=== PATIENT | male | born 1960 | race Caucasian/White ===

== ENCOUNTER 2016-10-19 10:58 | Emergency (ER) | payer SELFPAY ==
[~2016-10-19 10:58] MED LIST: ALTA1CAP2 PO; ASPI1TAB PO; BACL10TA2 PO; COAL TAR TOP; CYMB60CA3 PO; HYDR-3719 PO; OXYB10TA PO; PETROLATUM TOP; PLAV75TA38 PO; PRAV80TA2 PO; RANI1TAB6 PO; TIZA4CAP3 PO; TRAZ50TA4 PO
[2016-10-19] MEDS ORDERED: IPRATROPIUM 0.5MG/ALBUTEROL 2.5MG INH SOL UD 3ML (DUONEB)(J7620) As Ordered ONE (11:33)
[2016-10-19 11:34] LABS: BASO % 0.2 % (0.0-1.0); EOS % 0.6 % (0.0-3.0); LARGE UNSTAINED CELL # 0.1 K/mm3 (0.0-0.4); LARGE UNSTAINED CELL % 2.3 % (0.0-4.0); LYMPH # 0.8 K/mm3 (1.5-4.5); MEAN CORPUSCULAR HEMOGLOBIN 31.6 pg (27.0-33.0); MEAN CORPUSCULAR HGB CONC 35.5 g/dl (32.0-36.5); MEAN CORPUSCULAR VOLUME 89.1 fl (80.0-96.0); MONO # 0.4 K/mm3 (0.0-0.8); MONO % 7.1 % (0.0-5.0); NEUTROPHILS # 4.6 K/mm3 (1.8-7.7); NEUTROPHILS % 76.8 % (36.0-66.0); PLATELET COUNT, AUTOMATED 124 k/mm3 (150-450); RED CELL DISTRIBUTION WIDTH 12.9 % (11.5-14.5)
[2016-10-19 11:48] LABS: ANION GAP 13 MEQ/L (8-16); BLOOD UREA NITROGEN 13 MG/DL (7-18); CALCIUM LEVEL 8.3 MG/DL (8.5-10.1); CARBON DIOXIDE LEVEL 22 MEQ/L (21-32); CHLORIDE LEVEL 100 MEQ/L (98-107); CREATININE FOR GFR 0.95 MG/DL (0.70-1.30); GLOMERULAR FILTRATION RATE > 60.0 (>56); GLUCOSE, FASTING 148 MG/DL (70-105); POTASSIUM SERUM 3.6 MEQ/L (3.5-5.1); SODIUM LEVEL 135 MEQ/L (136-145)
[2016-10-19] MEDS ORDERED: ACETAMINOPHEN 325 MG TAB As Ordered ONE (12:14)
[2016-10-19] MEDS ORDERED: ONDANSETRON 4MG/2ML VIAL (J2405) As Ordered ONE (12:14)
--- NOTE | 2016-10-19 14:05 | EDDOCDS ---
Nurse's Notes [facility] Name: Qasim Babb Age: 56 yrs Sex: Male : 1960 Arrival Date: 10/19/2016 Time: 10:58 Bed 5 Private MD: Diagnosis: Acute bronchitis;Chronic obstructive pulmonary disease with (acute) exacerbation Presentation: 10/19 11:02 Presenting complaint: EMS states: sent from [facility] for general illness. Diff ttb breathing, n/v/d x5 days. Non-productive cough. SOB. Duoneb at . Albut in route. [id number]. 95% on 2L NC. Adult Sepsis Screening: The patient does not have new or worsening altered mentation. Patient has a respiratory rate of greater than or equal to 22 (1 point). Systolic blood pressure is greater than 100. Patient has a qSOFA score of 0- Negative Sepsis Screen. Suicide/Homicide risk assessment- the patient denies having any suicidal and/or homicidal ideations and does not present with any other emotional, behavioral or mental health complaints. Status: Patient is not a servicer coin machines or dependent. Transition of care: Patient was received from. 11:02 Acuity: MELY Level 3 ttb 11:02 Method Of Arrival: Walkin/Carried/Asstd ttb Triage Assessment: 11:10 General: Appears uncomfortable, well nourished, well groomed, Behavior is appropriate ttb for age, cooperative, pleasant. Pain: Denies pain. HIV screening NA for this visit Offered previously. Respiratory: Onset: The symptoms/episode began/occurred gradually, Airway is patent Respiratory effort is even, unlabored, shallow, Respiratory pattern is regular, symmetrical, Breath sounds are clear in left posterior upper lobe, right posterior upper lobe and left posterior lower lobe Breath sounds with rhonchi expiratory in right posterior middle lobe Reports shortness of breath at rest on exertion cough that is non-productive, pain with respiration the patient has moderate shortness of breath. GI: Bowel sounds present X 4 quads. Reports diarrhea, nausea, vomiting. Derm: Skin is normal. Historical: - Allergies: Chantix; - Home Meds: 1. pravastatin 80 mg oral tab 1 tab once daily (Last dose: 10/18/2016 21:00) 2. aspirin 81 mg Oral TbEC 1 tab once daily (Last dose: 10/18/2016 21:00) 3. Vicodin 5-500 mg Oral tab 1 tab every 4 hours (Last dose: 10/18/2016) 4. trazadone nightly (Last dose: 10/18/2016 21:00) 5. atenolol 100 mg Oral tab 1 tab once daily (Last dose: 10/18/2016 21:00) 6. ramipril 2.5 mg Oral cap 1 cap once daily (Last dose: 10/18/2016 21:00) 7. Plavix 75 mg Oral tab 1 tab once daily (Last dose: 10/18/2016 21:00) 8. Cymbalta 60 mg Oral cpDR 1 cap once daily (Last dose: 10/18/2016 21:00) - PMHx: lower abd aortic blockage w/ stent; COPD; Hypercholesterolemia; CAD; - PSHx: Coronary Stents; sinus surgery; aortic stent placement; - Social history: Smoking status: Patient uses tobacco products, current every day smoker. Patient/guardian denies using No barriers to communication noted, The patient speaks fluent Persian, Speaks appropriately for age. - Family history: Not pertinent. - : The pt / caregiver states he / she is on anticoagulants: Plavix. Home medication list is obtained from the patient. - Exposure Risk Screening:: None identified. Screenin:40 Screening information is obtained from the patient. Fall risk: No risks identified. ttb Assistance ADL's: requires no assistance with activities of daily living. Abuse/DV Screen: The patient / caregiver reports he/she is: not in a situation that causes fear, pain or injury. Nutritional screening: No deficits noted. Advance Directives: Currently, there is no health care proxy. home support is adequate. Assessment: 11:40 Adult Sepsis Screening: The patient does not have new or worsening altered mentation. ttb Patient has a respiratory rate of greater than or equal to 22 (1 point). Systolic blood pressure is greater than 100. Patient has a qSOFA score of 1- Negative Sepsis Screen. General: Appears in no apparent distress, Behavior is appropriate for age, cooperative, pleasant. Pain: Denies pain. Neurological: Level of Consciousness is awake, alert. Cardiovascular: Heart tones S1 S2 present Rhythm is sinus tachycardia No ectopy. Chest pain is denied. Derm: Skin is normal. 12:40 Reassessment: Patient appears in no apparent distress at this time. pt resting on ttb stretcher. NAD noted. Dry cough remains with deep inhalation. 12:40 Respiratory: Airway is patent Respiratory effort is even, unlabored, the patient has ttb mild shortness of breath. 13:15 Reassessment: Patient appears in no apparent distress at this time. Patient denies pain ttb at this time. Patient states feeling better. Patient states symptoms have improved. pt states he is ready to go home. 13:45 Reassessment: Patient appears in no apparent distress at this time. Patient denies pain ttb at this time. Patient states feeling better. Patient states symptoms have improved. pt states he is ready to go home at this time. . General: Appears in no apparent distress, comfortable, Behavior is appropriate for age, cooperative, pleasant. Pain: Denies pain. Neurological: Level of Consciousness is awake, alert. Cardiovascular: Chest pain is denied. Respiratory: No deficits noted. Airway is patent Respiratory effort is even, unlabored, Reports cough that is non-productive, the patient has mild shortness of breath Denies shortness of breath. GI: Denies nausea, vomiting, pain. Vital Signs: 11:05 BP 131 / 67; Pulse 104; Resp 22; Temp 101.5; Pulse Ox 95% on 2 lpm NC; Weight 122.47 rn1 kg; Height 5 ft. 8 in. (172.72 cm); Pain 7/10; 11:47 Pulse 102 MON; Pulse Ox 94% ; ttb 11:48 BP 149 / 64 (auto/); ttb 12:02 Pulse 108 MON; Pulse Ox 92% ; ttb 12:03 BP 137 / 68 (auto/); ttb 12:30 Pulse 96 MON; Pulse Ox 94% ; ttb 13:13 Pulse 92 MON; Resp 22 S; Pulse Ox 93% on 2 lpm NC; ttb 13:30 Temp 99.1; ttb 13:45 BP 130 / 80; Pulse 100; Resp 20; Temp 99.1; Pulse Ox 92% on R/A; Pain 0/10; ttb 11:05 Body Mass Index 41.05 (122.47 kg, 172.72 cm) rn1 Vitals: 11:10 Log In Time N/A - ambulance arrival. ttb ED Course: 10:59 Patient visited by Yuridia Ramsey Resolution Specialist. deg 10:59 Patient moved to Waiting deg 11:00 Joana Sandoval,MARIELENA is Primary Nurse. deg 11:00 Patient moved to 5 deg 11:04 Triage Initiated ttb 11:11 Patient visited by Stef Dowd. jml1 11:11 EKG done. (by ED staff). Reviewed by Shaila Holland MD. jml1 11:12 Patient visited by Christie Law RN. ttb 11:39 Maintain field IV. Dressing intact. Good blood return noted. Site clean & dry. Gauge & ttb site: 20GLH. Labs drawn. (by ED staff). Labs/Blood culture drawn. 11:40 The patient / caregiver is instructed regarding the plan of care and ED course. ttb Accompanied by Significant Other, Patient has correct armband on for positive identification. Placed in gown. Side rails up X 1. 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 Pulse ox on. NIBP on. 11:40 O2 via nasal cannula \T\ 2L/min. ttb 11:41 Patient visited by Christie Law RN. ttb 12:08 Avtar Tirado FNP is [facility]. ke 12:08 Patient visited by Avtar Tirado FNP. ke 12:08 Patient visited by Avtar Tirado FNP. ke 12:14 -Influenza A&B Rapid Antigen - Nose Sent. ttb 12:32 Patient visited by Avtar Tirado FNP. ke 12:40 Patient visited by Esther Heath PCA. bnb 12:40 Diet: Patient given juice. Tolerated well. bnb 13:11 Patient visited by Avtar Tirado FNP. ke 13:15 Patient visited by Christie Law RN. ttb 13:41 Patient visited by Christie Law RN. ttb 13:45 Discontinued IV lock intact, bleeding controlled, pressure dressing applied, No ttb redness/swelling at site. No procedures done that require assistance. Administered Medications: 11:39 Drug: Albuterol-Ipratropium 3 ml [ipratropium-albuterol 0.5 mg-3 mg(2.5 mg base)/3 mL [facility] nebulization soln (3 mL)] Route: Inhalation; 11:57 Follow up: Response: Nebulizer completed km6 12:19 Drug: Acetaminophen 975 mg [acetaminophen 325 mg tablet (3 tabs)] Route: PO; ttb 13:30 Follow up: Temp 99.1; Response: Temperature is decreased ttb 12:20 Drug: NS 0.9% 1000 ml [sodium chloride 0.9 % intravenous solution] Route: IV; Rate: ttb bolus; Site: left hand; 14:03 Follow up: Response: No Adverse Reaction; IV Status: Completed infusion ttb 12:21 Drug: Ondansetron 4 mg [ondansetron HCl 2 mg/mL intravenous solution (2 mL)] Route: ttb IVP; Site: left hand; 13:00 Follow up: Response: Nausea is resolved; No Adverse Reaction ttb RT: 11:57 Initial Med Neb Given as ordered Patient was instructed and evaluated on procedure km6 Patient tolerated procedure well without adverse effect. Respiratory: Breath sounds are clear bilaterally. 11:58 Respiratory: Breath sounds with rhonchi. km6 Order Results: Lab Order: B-Type Natiuretic Peptide; SPEC'M 10/19/16 11:19 Test: BRAIN NATRIURETIC PEPTIDE; Value: 5.7; Range: <100; Units: PG/ML; Status: F Lab Order: Basic Metabolic Profile; SPEC'M 10/19/16 11:19 Test: GLUCOSE, FASTING; Value: 148; Range: 70-105; Abnormal: Above high normal; Units: MG/DL; Status: F Test: BLOOD UREA NITROGEN; Value: 13; Range: 7-18; Units: MG/DL; Status: F Test: CREATININE FOR GFR; Value: 0.95; Range: 0.70-1.30; Units: MG/DL; Status: F Test: GLOMERULAR FILTRATION RATE; Value: > 60.0; Range: >56; Status: F Test: SODIUM LEVEL; Value: 135; Range: 136-145; Abnormal: Below low normal; Units: MEQ/L; Status: F Test: POTASSIUM SERUM; Value: 3.6; Range: 3.5-5.1; Units: MEQ/L; Status: F Test: CHLORIDE LEVEL; Value: 100; Range: 98-107; Units: MEQ/L; Status: F Test: CARBON DIOXIDE LEVEL; Value: 22; Range: 21-32; Units: MEQ/L; Status: F Test: ANION GAP; Value: 13; Range: 8-16; Units: MEQ/L; Status: F Test: CALCIUM LEVEL; Value: 8.3; Range: 8.5-10.1; Abnormal: Below low normal; Units: MG/DL; Status: F Test Note: ; Units are mL/min/1.73 m2 Chronic Kidney Disease Staging per NKF: Stage I & II GFR >=60 Normal to Mildly Decreased Stage III GFR 30-59 Moderately Decreased Stage IV GFR 15-29 Severely Decreased Stage V GFR <15 Very Little GFR Left ESRD GFR <15 on ZONING ASSISTANT Lab Order: CBC with Diff; SPEC'M 10/19/16 11:19 Test: WHITE BLOOD COUNT; Value: 6.0; Range: 4.0-10.0; Units: K/mm3; Status: F Test: RED BLOOD COUNT; Value: 5.43; Range: 4.30-6.10; Units: M/mm3; Status: F Test: HEMOGLOBIN; Value: 17.1; Range: 14.0-18.0; Units: g/dl; Status: F Test: HEMATOCRIT; Value: 48.3; Range: 42.0-52.0; Units: %; Status: F Test: MEAN CORPUSCULAR VOLUME; Value: 89.1; Range: 80.0-96.0; Units: fl; Status: F Test: MEAN CORPUSCULAR HEMOGLOBIN; Value: 31.6; Range: 27.0-33.0; Units: pg; Status: F Test: MEAN CORPUSCULAR HGB CONC; Value: 35.5; Range: 32.0-36.5; Units: g/dl; Status: F Test: RED CELL DISTRIBUTION WIDTH; Value: 12.9; Range: 11.5-14.5; Units: %; Status: F Test: PLATELET COUNT, AUTOMATED; Value: 124; Range: 150-450; Abnormal: Below low normal; Units: k/mm3; Status: F Test: NEUTROPHILS %; Value: 76.8; Range: 36.0-66.0; Abnormal: Above high normal; Units: %; Status: F Test: LYMPH %; Value: 13.0; Range: 24.0-44.0; Abnormal: Below low normal; Units: %; Status: F Test: MONO %; Value: 7.1; Range: 0.0-5.0; Abnormal: Above high normal; Units: %; Status: F Test: EOS %; Value: 0.6; Range: 0.0-3.0; Units: %; Status: F Test: BASO %; Value: 0.2; Range: 0.0-1.0; Units: %; Status: F Test: LARGE UNSTAINED CELL %; Value: 2.3; Range: 0.0-4.0; Units: %; Status: F Test: NEUTROPHILS #; Value: 4.6; Range: 1.8-7.7; Units: K/mm3; Status: F Test: LYMPH #; Value: 0.8; Range: 1.5-4.5; Abnormal: Below low normal; Units: K/mm3; Status: F Test: MONO #; Value: 0.4; Range: 0.0-0.8; Units: K/mm3; Status: F Test: EOS #; Value: 0.0; Range: 0.0-0.50; Units: K/mm3; Status: F Test: BASO #; Value: 0.0; Range: 0.0-0.2; Units: K/mm3; Status: F Test: LARGE UNSTAINED CELL #; Value: 0.1; Range: 0.0-0.4; Units: K/mm3; Status: F Lab Order: Troponin; SPEC'M 10/19/16 11:19 Test: TROPONIN I; Value: < 0.02; Range: < 0.10; Units: NG/ML; Status: F Test Note: ; Troponin I Reference Interval for Siemens Mattermark LOCI: 99th Percentile= 0.00-0.045 ng/ml Risk Stratification: <= 0.10 ng/ml Decreased Risk for Adverse Clinical Events. 0.10-1.50 ng/ml Increased Risk for Adverse Clinical Events. Evaluation of additional criterion and/or repeat testing in 2-6 hours is suggested to rule out myocardial damage. >= 1.50 ng/ml Indicative of Myocardial Injury. Lab Order: -Influenza A&B Rapid Antigen - Nose; SPEC'M 10/19/16 11:23 Test: INFLUENZA A RAPID SCR by ICA; Value: INFLUENZA A RESULTS NEGATIVE; Status: F Test: INFLUENZA A RAPID SCR by ICA; Value: Comments:; Status: F Test: INFLUENZA B RAPID SCR by ICA; Value: INFLUENZA B RESULTS NEGATIVE; Status: F Test Note: ; The Influenza test is a direct rapid immunoassay for the qualitative detection of Influenza viral antigen. Cell culture (Viral Culture) testing should be considered to confirm NEGATIVE results and to assist in detecting other viruses that can provide similar clinical symptoms. Please contact the lab within 24 hours ([phone]) if confirmatory testing is desired. Outcome: 13:35 Discharge ordered by Provider. 13:45 Discharge Assessment: Patient awake, alert and oriented x 3. No cognitive and/or ttb functional deficits noted. Patient verbalized understanding of disposition instructions. Patient awake and alert. patient administered narcotics - no. The following High Risk Discharge criteria are identified: None. Discharged to home ambulatory, with significant other. Condition: good Condition: stable Condition: improved. Discharge instructions given to patient, significant other, Instructed on discharge instructions, follow up and referral plans. medication usage, Demonstrated understanding of instructions, medications, Pt was receptive of discharge instructions/ teaching. Prescriptions given X 2. No special radiology studies were completed. Property :Personal belongings accompany Pt. 14:04 Patient left the ED. ttb Signatures: Yuridia Ramsey, Resolution Specialist Unit deg Avtar Tirado, C++ PROFESSOR C++ PROFESSOR Yeni Cantu km6 Stef Dowd Teresa, RN RN ttb Qasim Laird rn1 Esther Heath, OVIDIO ELECTROMECHANICAL TECHNICIAN bnb MTDD
--- NOTE | 2016-10-19 14:05 | EDDOCDS ---
Physician Documentation [facility] Name: Qasim Babb Age: 56 yrs Sex: Male : 1960 Arrival Date: 10/19/2016 Time: 10:58 Bed 5 Private MD: Disposition: 10/19/16 13:35 Discharged to Home/Self Care. Impression: Acute bronchitis, Chronic obstructive pulmonary disease with (acute) exacerbation. - Condition is Stable. - Discharge Instructions: Acute Bronchitis, Chronic Obstructive Pulmonary Disease. - Prescriptions for Tussionex Pennkinetic ER 8- 10 mg/5 mL Oral Suspension, Sust. Release 12 hr - take 5 milliliter by ORAL route every 12 hours As needed; 120 milliliter. Moxifloxacin 400 mg Oral Tablet - take 1 tablet by ORAL route once daily; 7 tablet. - Medication Reconciliation, Local Pharmacy Hours form. - Follow up: Private Physician; When: 4 - 5 days; Reason: Recheck today's complaints, Continuance of care. - Problem is an ongoing problem. - Symptoms are unchanged. Historical: - Allergies: Chantix; - Home Meds: 1. pravastatin 80 mg oral tab 1 tab once daily (Last dose: 10/18/2016 21:00) 2. aspirin 81 mg Oral TbEC 1 tab once daily (Last dose: 10/18/2016 21:00) 3. Vicodin 5-500 mg Oral tab 1 tab every 4 hours (Last dose: 10/18/2016) 4. trazadone nightly (Last dose: 10/18/2016 21:00) 5. atenolol 100 mg Oral tab 1 tab once daily (Last dose: 10/18/2016 21:00) 6. ramipril 2.5 mg Oral cap 1 cap once daily (Last dose: 10/18/2016 21:00) 7. Plavix 75 mg Oral tab 1 tab once daily (Last dose: 10/18/2016 21:00) 8. Cymbalta 60 mg Oral cpDR 1 cap once daily (Last dose: 10/18/2016 21:00) - PMHx: lower abd aortic blockage w/ stent; COPD; Hypercholesterolemia; CAD; - PSHx: Coronary Stents; sinus surgery; aortic stent placement; - Social history: Smoking status: Patient uses tobacco products, current every day smoker. Patient/guardian denies using No barriers to communication noted, The patient speaks fluent Latvian, Speaks appropriately for age. - Family history: Not pertinent. - : The pt / caregiver states he / she is on anticoagulants: Plavix. Home medication list is obtained from the patient. - Exposure Risk Screening:: None identified. Vital Signs: 10/19 11:05 BP 131 / 67; Pulse 104; Resp 22; Temp 101.5; Pulse Ox 95% on 2 lpm NC; Weight 122.47 kg rn1 / 270 lbs; Height 5 ft. 8 in. (172.72 cm); Pain 7/10; 11:47 Pulse 102 MON; Pulse Ox 94% ; ttb 11:48 BP 149 / 64 (auto/); ttb 12:02 Pulse 108 MON; Pulse Ox 92% ; ttb 12:03 BP 137 / 68 (auto/); ttb 12:30 Pulse 96 MON; Pulse Ox 94% ; ttb 13:13 Pulse 92 MON; Resp 22 S; Pulse Ox 93% on 2 lpm NC; ttb 13:30 Temp 99.1; ttb 13:45 BP 130 / 80; Pulse 100; Resp 20; Temp 99.1; Pulse Ox 92% on R/A; Pain 0/10; ttb 11:05 Body Mass Index 41.05 (122.47 kg, 172.72 cm) rn1 MDM: 11:01 -Blood Culture (Adults Only), peripheral from different site, or from device/port/PICC fg etc. if present ordered. 11:01 Electric Meter Installer Helper/Pulse Ox/q 15 min VS ordered. fg 11:01 IV Saline Lock ordered. fg 11:01 Oxygen at 4L/Min NC or Home dosage ordered. fg 11:01 Rhythm Strip to chart ordered. fg 11:02 -Blood Culture Ordered. EDMS 11:02 B-Type Natiuretic Peptide Ordered. EDMS 11:02 Basic Metabolic Profile Ordered. EDMS 11:02 CBC with Diff Ordered. EDMS 11:02 Troponin Ordered. EDMS 11:02 -Blood Culture (Adults Only), peripheral from different site, or from device/port/PICC deg etc. if present complete. 11:03 Chest, 1 View Ordered. EDMS 11:03 ECG WITH READING ER PHYS+CARDIAG ordered. EDMS 11:25 Albuterol-Ipratropium 3 ml Inhalation once ordered. fg 12:12 Obtain sample by nasal aspiration ordered. ke 12:12 Acetaminophen Tablet 975 mg PO once ordered. ke 12:13 -Influenza A&B Rapid Antigen - Nose Ordered. EDMS 12:13 NS 0.9% 1000 ml IV at bolus once ordered. ke 12:13 Ondansetron 4 mg IVP once ordered. ke 13:58 Financial registration complete. jp5 Administered Medications: 11:39 Drug: Albuterol-Ipratropium 3 ml [ipratropium-albuterol 0.5 mg-3 mg(2.5 mg base)/3 mL km6 nebulization soln (3 mL)] Route: Inhalation; 11:57 Follow up: Response: Nebulizer completed km6 12:19 Drug: Acetaminophen 975 mg [acetaminophen 325 mg tablet (3 tabs)] Route: PO; ttb 13:30 Follow up: Temp 99.1; Response: Temperature is decreased ttb 12:20 Drug: NS 0.9% 1000 ml [sodium chloride 0.9 % intravenous solution] Route: IV; Rate: ttb bolus; Site: left hand; 14:03 Follow up: Response: No Adverse Reaction; IV Status: Completed infusion ttb 12:21 Drug: Ondansetron 4 mg [ondansetron HCl 2 mg/mL intravenous solution (2 mL)] Route: ttb IVP; Site: left hand; 13:00 Follow up: Response: Nausea is resolved; No Adverse Reaction ttb Signatures: Dispatcher [employer] EDYuridia Vu, Detonator Assembler Unit deg Avtar Tirado, DIRT SHOVELER Christie Ha RN RN ttb Gilmer Schneider jp5 Shaila Holland MD MD fg Merriman, Kimberly 6 The chart was reviewed and I authenticate all verbal orders and agree with the evaluation and treatment provided.Corrections: (The following items were deleted from the chart) 13:41 11:03 BLOOD CULTURES ordered. EDPR EDMS MTDD
--- NOTE | 2016-10-19 15:51 | ECGEPIP ---
Stationary ECG Study [facility] - ED Test Date: 2016-10-19 Pat Name: AIYANA SHAFER Department: Room: - Gender: M Voice Studies Director: JJavy : 1960 Requested By: ANGELA Moreira Order Number: [id number] Reading MD: Ching Guillermo Measurements Intervals [place] Rate: 102 P: 69 ME: 128 QRS: 81 QRSD: 102 T: 18 QT: 348 QTc: 453 Interpretive Statements SINUS TACHYCARDIA WITH OCCASIONAL VENTRICULAR PREMATURE COMPLEXES ABNORMAL RHYTHM ECG DELAYED R PROGRESSION NSTTW ABNORMALITY INCREASED RATE 05/31/12 Electronically Signed On 10-19-2016 15:51:02 EST by Ching Guillermo
--- NOTE | 2016-10-20 11:14 | REP ---
Portable chest, single AP view, patient sitting: Comparisons are 09/19/2016 and 05/31/2012. The lung zhong are clear. The cardiac size is normal The rose, mediastinum, and bony thorax are unremarkable. Impression: Negative portable chest. Signed by Lavelle Cabrera MD 10/19/2016 11:54 A
--- NOTE | 2016-10-21 15:05 | EDDOCDS ---
Physician Documentation [facility] Name: Qasim Babb Age: 56 yrs Sex: Male : 1960 Arrival Date: 10/19/2016 Time: 10:58 Bed 5 Private MD: Disposition: 10/19/16 13:35 Discharged to Home/Self Care. Impression: Acute bronchitis, Chronic obstructive pulmonary disease with (acute) exacerbation. - Condition is Stable. - Discharge Instructions: Acute Bronchitis, Chronic Obstructive Pulmonary Disease. - Prescriptions for Tussionex Pennkinetic ER 8- 10 mg/5 mL Oral Suspension, Sust. Release 12 hr - take 5 milliliter by ORAL route every 12 hours As needed; 120 milliliter. Moxifloxacin 400 mg Oral Tablet - take 1 tablet by ORAL route once daily; 7 tablet. - Medication Reconciliation, Local Pharmacy Hours form. - Follow up: Private Physician; When: 4 - 5 days; Reason: Recheck today's complaints, Continuance of care. - Problem is an ongoing problem. - Symptoms are unchanged. Historical: - Allergies: Chantix; - Home Meds: 1. pravastatin 80 mg oral tab 1 tab once daily (Last dose: 10/18/2016 21:00) 2. aspirin 81 mg Oral TbEC 1 tab once daily (Last dose: 10/18/2016 21:00) 3. Vicodin 5-500 mg Oral tab 1 tab every 4 hours (Last dose: 10/18/2016) 4. trazadone nightly (Last dose: 10/18/2016 21:00) 5. atenolol 100 mg Oral tab 1 tab once daily (Last dose: 10/18/2016 21:00) 6. ramipril 2.5 mg Oral cap 1 cap once daily (Last dose: 10/18/2016 21:00) 7. Plavix 75 mg Oral tab 1 tab once daily (Last dose: 10/18/2016 21:00) 8. Cymbalta 60 mg Oral cpDR 1 cap once daily (Last dose: 10/18/2016 21:00) - PMHx: lower abd aortic blockage w/ stent; COPD; Hypercholesterolemia; CAD; - PSHx: Coronary Stents; sinus surgery; aortic stent placement; - Social history: Smoking status: Patient uses tobacco products, current every day smoker. Patient/guardian denies using No barriers to communication noted, The patient speaks fluent Zimbabwean, Speaks appropriately for age. - Family history: Not pertinent. - : The pt / caregiver states he / she is on anticoagulants: Plavix. Home medication list is obtained from the patient. - Exposure Risk Screening:: None identified. Vital Signs: 10/19 11:05 BP 131 / 67; Pulse 104; Resp 22; Temp 101.5; Pulse Ox 95% on 2 lpm NC; Weight 122.47 kg rn1 / 270 lbs; Height 5 ft. 8 in. (172.72 cm); Pain 7/10; 11:47 Pulse 102 MON; Pulse Ox 94% ; ttb 11:48 BP 149 / 64 (auto/); ttb 12:02 Pulse 108 MON; Pulse Ox 92% ; ttb 12:03 BP 137 / 68 (auto/); ttb 12:30 Pulse 96 MON; Pulse Ox 94% ; ttb 13:13 Pulse 92 MON; Resp 22 S; Pulse Ox 93% on 2 lpm NC; ttb 13:30 Temp 99.1; ttb 13:45 BP 130 / 80; Pulse 100; Resp 20; Temp 99.1; Pulse Ox 92% on R/A; Pain 0/10; ttb 11:05 Body Mass Index 41.05 (122.47 kg, 172.72 cm) rn1 MDM: 11:01 -Blood Culture (Adults Only), peripheral from different site, or from device/port/PICC fg etc. if present ordered. 11:01 Cooker Pie Filling/Pulse Ox/q 15 min VS ordered. fg 11:01 IV Saline Lock ordered. fg 11:01 Oxygen at 4L/Min NC or Home dosage ordered. fg 11:01 Rhythm Strip to chart ordered. fg 11:02 -Blood Culture Ordered. EDMS 11:02 B-Type Natiuretic Peptide Ordered. EDMS 11:02 Basic Metabolic Profile Ordered. EDMS 11:02 CBC with Diff Ordered. EDMS 11:02 Troponin Ordered. EDMS 11:02 -Blood Culture (Adults Only), peripheral from different site, or from device/port/PICC deg etc. if present complete. 11:03 Chest, 1 View Ordered. EDMS 11:03 ECG WITH READING ER PHYS+CARDIAG ordered. EDMS 11:25 Albuterol-Ipratropium 3 ml Inhalation once ordered. fg 12:12 Obtain sample by nasal aspiration ordered. ke 12:12 Acetaminophen Tablet 975 mg PO once ordered. ke 12:13 -Influenza A&B Rapid Antigen - Nose Ordered. EDMS 12:13 NS 0.9% 1000 ml IV at bolus once ordered. ke 12:13 Ondansetron 4 mg IVP once ordered. ke 13:58 Financial registration complete. jp5 15:49 [facility] Payment Agreement was scanned into [employer] and attached to record. jp5 15:49 Undo -Financial registration. jp5 15:49 Financial registration complete. jp5 19:17 T-Sheet-- Draft Copy was scanned into [employer] and attached to record. klr 10/20 10:46 ECG/EKG was scanned into [employer] and attached to record. gb 10:46 Trend VS was scanned into [employer] and attached to record. gb Administered Medications: 10/19 11:39 Drug: Albuterol-Ipratropium 3 ml [ipratropium-albuterol 0.5 mg-3 mg(2.5 mg base)/3 mL 6 nebulization soln (3 mL)] Route: Inhalation; 11:57 Follow up: Response: Nebulizer completed km6 12:19 Drug: Acetaminophen 975 mg [acetaminophen 325 mg tablet (3 tabs)] Route: PO; ttb 13:30 Follow up: Temp 99.1; Response: Temperature is decreased ttb 12:20 Drug: NS 0.9% 1000 ml [sodium chloride 0.9 % intravenous solution] Route: IV; Rate: ttb bolus; Site: left hand; 14:03 Follow up: Response: No Adverse Reaction; IV Status: Completed infusion ttb 12:21 Drug: Ondansetron 4 mg [ondansetron HCl 2 mg/mL intravenous solution (2 mL)] Route: ttb IVP; Site: left hand; 13:00 Follow up: Response: Nausea is resolved; No Adverse Reaction ttb Signatures: Dispatcher [employer] EDMS Yuridia Ramsey, Engineering Technology Instructor Unit deg Taylor Peters, Reg Reg gb Avtar Tirado, PIPE FITTER SOFT COPPER PIPE FITTER SOFT COPPER Christie Ramsay, RN RN ttb Gilmer Schneider 5 Shaila Holland MD MD fg Redder, Kathie klr Merriman, Kimberly 6 The chart was reviewed and I authenticate all verbal orders and agree with the evaluation and treatment provided.Corrections: (The following items were deleted from the chart) 13:41 11:03 BLOOD CULTURES ordered. EDMS EDMS Attachments: 15:49 [facility] Payment Agreement jp5 19:17 T-Sheet-- Draft Copy r 10/20 10:46 ECG/EKG gb Chart Complete MTDD
--- NOTE | 2016-10-21 15:05 | EDDOCDS ---
Nurse's Notes [facility] Name: Aiyana Shafer Age: 56 yrs Sex: Male : 1960 Arrival Date: 10/19/2016 Time: 10:58 Bed 5 Private MD: Diagnosis: Acute bronchitis;Chronic obstructive pulmonary disease with (acute) exacerbation Presentation: 10/19 11:02 Presenting complaint: EMS states: sent from [facility] for general illness. Diff ttb breathing, n/v/d x5 days. Non-productive cough. SOB. Duoneb at . Albut in route. [id number]. 95% on 2L NC. Adult Sepsis Screening: The patient does not have new or worsening altered mentation. Patient has a respiratory rate of greater than or equal to 22 (1 point). Systolic blood pressure is greater than 100. Patient has a qSOFA score of 0- Negative Sepsis Screen. Suicide/Homicide risk assessment- the patient denies having any suicidal and/or homicidal ideations and does not present with any other emotional, behavioral or mental health complaints. Status: Patient is not a ancillary services manager or dependent. Transition of care: Patient was received from. 11:02 Acuity: MELY Level 3 ttb 11:02 Method Of Arrival: Walkin/Carried/Asstd ttb Triage Assessment: 11:10 General: Appears uncomfortable, well nourished, well groomed, Behavior is appropriate ttb for age, cooperative, pleasant. Pain: Denies pain. HIV screening NA for this visit Offered previously. Respiratory: Onset: The symptoms/episode began/occurred gradually, Airway is patent Respiratory effort is even, unlabored, shallow, Respiratory pattern is regular, symmetrical, Breath sounds are clear in left posterior upper lobe, right posterior upper lobe and left posterior lower lobe Breath sounds with rhonchi expiratory in right posterior middle lobe Reports shortness of breath at rest on exertion cough that is non-productive, pain with respiration the patient has moderate shortness of breath. GI: Bowel sounds present X 4 quads. Reports diarrhea, nausea, vomiting. Derm: Skin is normal. Historical: - Allergies: Chantix; - Home Meds: 1. pravastatin 80 mg oral tab 1 tab once daily (Last dose: 10/18/2016 21:00) 2. aspirin 81 mg Oral TbEC 1 tab once daily (Last dose: 10/18/2016 21:00) 3. Vicodin 5-500 mg Oral tab 1 tab every 4 hours (Last dose: 10/18/2016) 4. trazadone nightly (Last dose: 10/18/2016 21:00) 5. atenolol 100 mg Oral tab 1 tab once daily (Last dose: 10/18/2016 21:00) 6. ramipril 2.5 mg Oral cap 1 cap once daily (Last dose: 10/18/2016 21:00) 7. Plavix 75 mg Oral tab 1 tab once daily (Last dose: 10/18/2016 21:00) 8. Cymbalta 60 mg Oral cpDR 1 cap once daily (Last dose: 10/18/2016 21:00) - PMHx: lower abd aortic blockage w/ stent; COPD; Hypercholesterolemia; CAD; - PSHx: Coronary Stents; sinus surgery; aortic stent placement; - Social history: Smoking status: Patient uses tobacco products, current every day smoker. Patient/guardian denies using No barriers to communication noted, The patient speaks fluent Korean, Speaks appropriately for age. - Family history: Not pertinent. - : The pt / caregiver states he / she is on anticoagulants: Plavix. Home medication list is obtained from the patient. - Exposure Risk Screening:: None identified. Screenin:40 Screening information is obtained from the patient. Fall risk: No risks identified. ttb Assistance ADL's: requires no assistance with activities of daily living. Abuse/DV Screen: The patient / caregiver reports he/she is: not in a situation that causes fear, pain or injury. Nutritional screening: No deficits noted. Advance Directives: Currently, there is no health care proxy. home support is adequate. Assessment: 11:40 Adult Sepsis Screening: The patient does not have new or worsening altered mentation. ttb Patient has a respiratory rate of greater than or equal to 22 (1 point). Systolic blood pressure is greater than 100. Patient has a qSOFA score of 1- Negative Sepsis Screen. General: Appears in no apparent distress, Behavior is appropriate for age, cooperative, pleasant. Pain: Denies pain. Neurological: Level of Consciousness is awake, alert. Cardiovascular: Heart tones S1 S2 present Rhythm is sinus tachycardia No ectopy. Chest pain is denied. Derm: Skin is normal. 12:40 Reassessment: Patient appears in no apparent distress at this time. pt resting on ttb stretcher. NAD noted. Dry cough remains with deep inhalation. 12:40 Respiratory: Airway is patent Respiratory effort is even, unlabored, the patient has ttb mild shortness of breath. 13:15 Reassessment: Patient appears in no apparent distress at this time. Patient denies pain ttb at this time. Patient states feeling better. Patient states symptoms have improved. pt states he is ready to go home. 13:45 Reassessment: Patient appears in no apparent distress at this time. Patient denies pain ttb at this time. Patient states feeling better. Patient states symptoms have improved. pt states he is ready to go home at this time. . General: Appears in no apparent distress, comfortable, Behavior is appropriate for age, cooperative, pleasant. Pain: Denies pain. Neurological: Level of Consciousness is awake, alert. Cardiovascular: Chest pain is denied. Respiratory: No deficits noted. Airway is patent Respiratory effort is even, unlabored, Reports cough that is non-productive, the patient has mild shortness of breath Denies shortness of breath. GI: Denies nausea, vomiting, pain. Vital Signs: 11:05 BP 131 / 67; Pulse 104; Resp 22; Temp 101.5; Pulse Ox 95% on 2 lpm NC; Weight 122.47 rn1 kg; Height 5 ft. 8 in. (172.72 cm); Pain 7/10; 11:47 Pulse 102 MON; Pulse Ox 94% ; ttb 11:48 BP 149 / 64 (auto/); ttb 12:02 Pulse 108 MON; Pulse Ox 92% ; ttb 12:03 BP 137 / 68 (auto/); ttb 12:30 Pulse 96 MON; Pulse Ox 94% ; ttb 13:13 Pulse 92 MON; Resp 22 S; Pulse Ox 93% on 2 lpm NC; ttb 13:30 Temp 99.1; ttb 13:45 BP 130 / 80; Pulse 100; Resp 20; Temp 99.1; Pulse Ox 92% on R/A; Pain 0/10; ttb 11:05 Body Mass Index 41.05 (122.47 kg, 172.72 cm) rn1 Vitals: 11:10 Log In Time N/A - ambulance arrival. ttb ED Course: 10:59 Patient visited by Yuridia Ramsey Research Group Director. deg 10:59 Patient moved to Waiting deg 11:00 Joana Sandoval,MARIELENA is Primary Nurse. deg 11:00 Patient moved to 5 deg 11:04 Triage Initiated ttb 11:11 Patient visited by Stef Dowd. jml1 11:11 EKG done. (by ED staff). Reviewed by Shaila Holland MD. jml1 11:12 Patient visited by Christie Law, MARIELENA. ttb 11:39 Maintain field IV. Dressing intact. Good blood return noted. Site clean & dry. Gauge & ttb site: 20GLH. Labs drawn. (by ED staff). Labs/Blood culture drawn. 11:40 The patient / caregiver is instructed regarding the plan of care and ED course. ttb Accompanied by Significant Other, Patient has correct armband on for positive identification. Placed in gown. Side rails up X 1. break off worker on. Pulse ox on. NIBP on. 11:40 O2 via nasal cannula \T\ 2L/min. ttb 11:41 Patient visited by Christie Law RN. ttb 12:08 Avtar Tirado [facility]. ke 12:08 Patient visited by Avtar Tirado FNP. ke 12:08 Patient visited by Avtar Tirado FNP. ke 12:14 -Influenza A&B Rapid Antigen - Nose Sent. ttb 12:32 Patient visited by Avtar Tirado FNP. ke 12:40 Patient visited by Esther Heath, OVIDIO. bnb 12:40 Diet: Patient given juice. Tolerated well. bnb 13:11 Patient visited by Avtar Tirado FNP. ke 13:15 Patient visited by Christie Law RN. ttb 13:41 Patient visited by Christie Law RN. ttb 13:45 Discontinued IV lock intact, bleeding controlled, pressure dressing applied, No ttb redness/swelling at site. No procedures done that require assistance. 15:49 [facility] Payment Agreement was scanned into [employer] and attached to record. jp5 16:04 EKG-ADULT Returned. EDMS 19:17 T-Sheet-- Draft Copy was scanned into [employer] and attached to record. klr 10/20 10:46 ECG/EKG was scanned into [employer] and attached to record. gb 10:46 Trend VS was scanned into [employer] and attached to record. gb 11:20 Chest, 1 View Returned. EDMS Administered Medications: 10/19 11:39 Drug: Albuterol-Ipratropium 3 ml [ipratropium-albuterol 0.5 mg-3 mg(2.5 mg base)/3 mL km6 nebulization soln (3 mL)] Route: Inhalation; 11:57 Follow up: Response: Nebulizer completed km6 12:19 Drug: Acetaminophen 975 mg [acetaminophen 325 mg tablet (3 tabs)] Route: PO; ttb 13:30 Follow up: Temp 99.1; Response: Temperature is decreased ttb 12:20 Drug: NS 0.9% 1000 ml [sodium chloride 0.9 % intravenous solution] Route: IV; Rate: ttb bolus; Site: left hand; 14:03 Follow up: Response: No Adverse Reaction; IV Status: Completed infusion ttb 12:21 Drug: Ondansetron 4 mg [ondansetron HCl 2 mg/mL intravenous solution (2 mL)] Route: ttb IVP; Site: left hand; 13:00 Follow up: Response: Nausea is resolved; No Adverse Reaction ttb Attachments: 10:46 Trend VS gb RT: 10/19 11:57 Initial Med Neb Given as ordered Patient was instructed and evaluated on procedure km6 Patient tolerated procedure well without adverse effect. Respiratory: Breath sounds are clear bilaterally. 11:58 Respiratory: Breath sounds with rhonchi. km6 Order Results: Lab Order: -Blood Culture; SPEC'M 10/19/16 11:19 Test: BLOOD CULTURE; Value: No growth after 24 hours . All specimens observed; Status: F Test: BLOOD CULTURE; Value: for 5 days. Results final at that time.; Status: F Test: BLOOD CULTURE; Value: No Growth after 48 hours. All Specimens observed; Status: F Test: BLOOD CULTURE; Value: for 7 days. Results final at that time.; Status: F Lab Order: B-Type Natiuretic Peptide; SPEC'M 10/19/16 11:19 Test: BRAIN NATRIURETIC PEPTIDE; Value: 5.7; Range: <100; Units: PG/ML; Status: F Lab Order: Basic Metabolic Profile; SPEC'M 10/19/16 11:19 Test: GLUCOSE, FASTING; Value: 148; Range: 70-105; Abnormal: Above high normal; Units: MG/DL; Status: F Test: BLOOD UREA NITROGEN; Value: 13; Range: 7-18; Units: MG/DL; Status: F Test: CREATININE FOR GFR; Value: 0.95; Range: 0.70-1.30; Units: MG/DL; Status: F Test: GLOMERULAR FILTRATION RATE; Value: > 60.0; Range: >56; Status: F Test: SODIUM LEVEL; Value: 135; Range: 136-145; Abnormal: Below low normal; Units: MEQ/L; Status: F Test: POTASSIUM SERUM; Value: 3.6; Range: 3.5-5.1; Units: MEQ/L; Status: F Test: CHLORIDE LEVEL; Value: 100; Range: 98-107; Units: MEQ/L; Status: F Test: CARBON DIOXIDE LEVEL; Value: 22; Range: 21-32; Units: MEQ/L; Status: F Test: ANION GAP; Value: 13; Range: 8-16; Units: MEQ/L; Status: F Test: CALCIUM LEVEL; Value: 8.3; Range: 8.5-10.1; Abnormal: Below low normal; Units: MG/DL; Status: F Test Note: ; Units are mL/min/1.73 m2 Chronic Kidney Disease Staging per NKF: Stage I & II GFR >=60 Normal to Mildly Decreased Stage III GFR 30-59 Moderately Decreased Stage IV GFR 15-29 Severely Decreased Stage V GFR <15 Very Little GFR Left ESRD GFR <15 on POULTRY PROCESS WORKER Lab Order: CBC with Diff; SPEC'M 10/19/16 11:19 Test: WHITE BLOOD COUNT; Value: 6.0; Range: 4.0-10.0; Units: K/mm3; Status: F Test: RED BLOOD COUNT; Value: 5.43; Range: 4.30-6.10; Units: M/mm3; Status: F Test: HEMOGLOBIN; Value: 17.1; Range: 14.0-18.0; Units: g/dl; Status: F Test: HEMATOCRIT; Value: 48.3; Range: 42.0-52.0; Units: %; Status: F Test: MEAN CORPUSCULAR VOLUME; Value: 89.1; Range: 80.0-96.0; Units: fl; Status: F Test: MEAN CORPUSCULAR HEMOGLOBIN; Value: 31.6; Range: 27.0-33.0; Units: pg; Status: F Test: MEAN CORPUSCULAR HGB CONC; Value: 35.5; Range: 32.0-36.5; Units: g/dl; Status: F Test: RED CELL DISTRIBUTION WIDTH; Value: 12.9; Range: 11.5-14.5; Units: %; Status: F Test: PLATELET COUNT, AUTOMATED; Value: 124; Range: 150-450; Abnormal: Below low normal; Units: k/mm3; Status: F Test: NEUTROPHILS %; Value: 76.8; Range: 36.0-66.0; Abnormal: Above high normal; Units: %; Status: F Test: LYMPH %; Value: 13.0; Range: 24.0-44.0; Abnormal: Below low normal; Units: %; Status: F Test: MONO %; Value: 7.1; Range: 0.0-5.0; Abnormal: Above high normal; Units: %; Status: F Test: EOS %; Value: 0.6; Range: 0.0-3.0; Units: %; Status: F Test: BASO %; Value: 0.2; Range: 0.0-1.0; Units: %; Status: F Test: LARGE UNSTAINED CELL %; Value: 2.3; Range: 0.0-4.0; Units: %; Status: F Test: NEUTROPHILS #; Value: 4.6; Range: 1.8-7.7; Units: K/mm3; Status: F Test: LYMPH #; Value: 0.8; Range: 1.5-4.5; Abnormal: Below low normal; Units: K/mm3; Status: F Test: MONO #; Value: 0.4; Range: 0.0-0.8; Units: K/mm3; Status: F Test: EOS #; Value: 0.0; Range: 0.0-0.50; Units: K/mm3; Status: F Test: BASO #; Value: 0.0; Range: 0.0-0.2; Units: K/mm3; Status: F Test: LARGE UNSTAINED CELL #; Value: 0.1; Range: 0.0-0.4; Units: K/mm3; Status: F Lab Order: Troponin; SPEC'M 10/19/16 11:19 Test: TROPONIN I; Value: < 0.02; Range: < 0.10; Units: NG/ML; Status: F Test Note: ; Troponin I Reference Interval for Siemens Thornton LOCI: 99th Percentile= 0.00-0.045 ng/ml Risk Stratification: <= 0.10 ng/ml Decreased Risk for Adverse Clinical Events. 0.10-1.50 ng/ml Increased Risk for Adverse Clinical Events. Evaluation of additional criterion and/or repeat testing in 2-6 hours is suggested to rule out myocardial damage. >= 1.50 ng/ml Indicative of Myocardial Injury. Lab Order: -Influenza A&B Rapid Antigen - Nose; SPEC'M 10/19/16 11:23 Test: INFLUENZA A RAPID SCR by ICA; Value: INFLUENZA A RESULTS NEGATIVE; Status: F Test: INFLUENZA A RAPID SCR by ICA; Value: Comments:; Status: F Test: INFLUENZA B RAPID SCR by ICA; Value: INFLUENZA B RESULTS NEGATIVE; Status: F Test Note: ; The Influenza test is a direct rapid immunoassay for the qualitative detection of Influenza viral antigen. Cell culture (Viral Culture) testing should be considered to confirm NEGATIVE results and to assist in detecting other viruses that can provide similar clinical symptoms. Please contact the lab within 24 hours ([phone]) if confirmatory testing is desired. Radiology Order: Chest, 1 View Test: Chest, 1 View REASON FOR EXAMINATION: Cough; Portable chest, single AP view, patient sitting:; ; Comparisons are 09/19/2016 and 05/31/2012.; ; The lung zhong are clear. The cardiac size is normal; ; The rose, mediastinum, and bony thorax are unremarkable.; ; Impression:; ; Negative portable chest.; ; ; Signed by; Lavelle Cabrera MD 10/19/2016 11:54 A; Radiology Order: EKG-ADULT Test: EKG-ADULT REASON FOR EXAMINATION: Cough; Stationary ECG Study; 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 ke 13:45 Discharge Assessment: Patient awake, alert and oriented x 3. No cognitive and/or ttb functional deficits noted. Patient verbalized understanding of disposition instructions. Patient awake and alert. patient administered narcotics - no. The following High Risk Discharge criteria are identified: None. Discharged to home ambulatory, with significant other. Condition: good Condition: stable Condition: improved. Discharge instructions given to patient, significant other, Instructed on discharge instructions, follow up and referral plans. medication usage, Demonstrated understanding of instructions, medications, Pt was receptive of discharge instructions/ teaching. Prescriptions given X 2. No special radiology studies were completed. Property :Personal belongings accompany Pt. 14:04 Patient left the ED. ttb Signatures: Dispatcher [employer] EDMS Yuridia Ramsey, Research Group Director Unit deg Taylor Peters, Reg Reg gb Avtar Tirado, TEACHER ELEMENTARY SCHOOL TEACHER ELEMENTARY SCHOOL Yeni Cantu6 Stef Dowd Teresa, RN RN ttb Aiyana Laird rn1 Gilmer Schneider Kathie klr Becker, Brittney, OVIDIO ENERGY SYSTEMS ENGINEER bnb Chart Complete MANUELITO
--- NOTE | 2016-10-21 15:05 | EDDOCDS ---
Physician Documentation [facility] Name: Qasim Babb Age: 56 yrs Sex: Male : 1960 Arrival Date: 10/19/2016 Time: 10:58 Bed 5 Private MD: Disposition: 10/19/16 13:35 Discharged to Home/Self Care. Impression: Acute bronchitis, Chronic obstructive pulmonary disease with (acute) exacerbation. - Condition is Stable. - Discharge Instructions: Acute Bronchitis, Chronic Obstructive Pulmonary Disease. - Prescriptions for Tussionex Pennkinetic ER 8- 10 mg/5 mL Oral Suspension, Sust. Release 12 hr - take 5 milliliter by ORAL route every 12 hours As needed; 120 milliliter. Moxifloxacin 400 mg Oral Tablet - take 1 tablet by ORAL route once daily; 7 tablet. - Medication Reconciliation, Local Pharmacy Hours form. - Follow up: Private Physician; When: 4 - 5 days; Reason: Recheck today's complaints, Continuance of care. - Problem is an ongoing problem. - Symptoms are unchanged. Historical: - Allergies: Chantix; - Home Meds: 1. pravastatin 80 mg oral tab 1 tab once daily (Last dose: 10/18/2016 21:00) 2. aspirin 81 mg Oral TbEC 1 tab once daily (Last dose: 10/18/2016 21:00) 3. Vicodin 5-500 mg Oral tab 1 tab every 4 hours (Last dose: 10/18/2016) 4. trazadone nightly (Last dose: 10/18/2016 21:00) 5. atenolol 100 mg Oral tab 1 tab once daily (Last dose: 10/18/2016 21:00) 6. ramipril 2.5 mg Oral cap 1 cap once daily (Last dose: 10/18/2016 21:00) 7. Plavix 75 mg Oral tab 1 tab once daily (Last dose: 10/18/2016 21:00) 8. Cymbalta 60 mg Oral cpDR 1 cap once daily (Last dose: 10/18/2016 21:00) - PMHx: lower abd aortic blockage w/ stent; COPD; Hypercholesterolemia; CAD; - PSHx: Coronary Stents; sinus surgery; aortic stent placement; - Social history: Smoking status: Patient uses tobacco products, current every day smoker. Patient/guardian denies using No barriers to communication noted, The patient speaks fluent Beninese, Speaks appropriately for age. - Family history: Not pertinent. - : The pt / caregiver states he / she is on anticoagulants: Plavix. Home medication list is obtained from the patient. - Exposure Risk Screening:: None identified. Vital Signs: 10/19 11:05 BP 131 / 67; Pulse 104; Resp 22; Temp 101.5; Pulse Ox 95% on 2 lpm NC; Weight 122.47 kg rn1 / 270 lbs; Height 5 ft. 8 in. (172.72 cm); Pain 7/10; 11:47 Pulse 102 MON; Pulse Ox 94% ; ttb 11:48 BP 149 / 64 (auto/); ttb 12:02 Pulse 108 MON; Pulse Ox 92% ; ttb 12:03 BP 137 / 68 (auto/); ttb 12:30 Pulse 96 MON; Pulse Ox 94% ; ttb 13:13 Pulse 92 MON; Resp 22 S; Pulse Ox 93% on 2 lpm NC; ttb 13:30 Temp 99.1; ttb 13:45 BP 130 / 80; Pulse 100; Resp 20; Temp 99.1; Pulse Ox 92% on R/A; Pain 0/10; ttb 11:05 Body Mass Index 41.05 (122.47 kg, 172.72 cm) rn1 MDM: 11:01 -Blood Culture (Adults Only), peripheral from different site, or from device/port/PICC fg etc. if present ordered. 11:01 Maintenance Person/Pulse Ox/q 15 min VS ordered. fg 11:01 IV Saline Lock ordered. fg 11:01 Oxygen at 4L/Min NC or Home dosage ordered. fg 11:01 Rhythm Strip to chart ordered. fg 11:02 -Blood Culture Ordered. EDMS 11:02 B-Type Natiuretic Peptide Ordered. EDMS 11:02 Basic Metabolic Profile Ordered. EDMS 11:02 CBC with Diff Ordered. EDMS 11:02 Troponin Ordered. EDMS 11:02 -Blood Culture (Adults Only), peripheral from different site, or from device/port/PICC deg etc. if present complete. 11:03 Chest, 1 View Ordered. EDMS 11:03 ECG WITH READING ER PHYS+CARDIAG ordered. EDMS 11:25 Albuterol-Ipratropium 3 ml Inhalation once ordered. fg 12:12 Obtain sample by nasal aspiration ordered. ke 12:12 Acetaminophen Tablet 975 mg PO once ordered. ke 12:13 -Influenza A&B Rapid Antigen - Nose Ordered. EDMS 12:13 NS 0.9% 1000 ml IV at bolus once ordered. ke 12:13 Ondansetron 4 mg IVP once ordered. ke 13:58 Financial registration complete. jp5 15:49 [facility] [place] Payment Agreement was scanned into [employer] and attached to record. jp5 15:49 Undo -Financial registration. jp5 15:49 Financial registration complete. jp5 19:17 T-Sheet-- Draft Copy was scanned into [employer] and attached to record. klr 10/20 10:46 ECG/EKG was scanned into [employer] and attached to record. gb 10:46 Trend VS was scanned into [employer] and attached to record. gb Administered Medications: 10/19 11:39 Drug: Albuterol-Ipratropium 3 ml [ipratropium-albuterol 0.5 mg-3 mg(2.5 mg base)/3 mL 6 nebulization soln (3 mL)] Route: Inhalation; 11:57 Follow up: Response: Nebulizer completed km6 12:19 Drug: Acetaminophen 975 mg [acetaminophen 325 mg tablet (3 tabs)] Route: PO; ttb 13:30 Follow up: Temp 99.1; Response: Temperature is decreased ttb 12:20 Drug: NS 0.9% 1000 ml [sodium chloride 0.9 % intravenous solution] Route: IV; Rate: ttb bolus; Site: left hand; 14:03 Follow up: Response: No Adverse Reaction; IV Status: Completed infusion ttb 12:21 Drug: Ondansetron 4 mg [ondansetron HCl 2 mg/mL intravenous solution (2 mL)] Route: ttb IVP; Site: left hand; 13:00 Follow up: Response: Nausea is resolved; No Adverse Reaction ttb Signatures: Dispatcher [employer] EDMS Yuridia Ramsey, Cloud Engagement Partner Unit deg Taylor Peters, Reg Reg gb Avtar Tirado, TELEVISION CAMERAMAN TELEVISION CAMERAMAN Christie Ramsay, RN RN ttb Gilmer Schneider 5 Shaila Holland MD MD fg Redder, Kathie klr Merriman, Kimberly 6 The chart was reviewed and I authenticate all verbal orders and agree with the evaluation and treatment provided.Corrections: (The following items were deleted from the chart) 13:41 11:03 BLOOD CULTURES ordered. EDMS EDMS Attachments: 15:49 [facility] Payment Agreement jp5 19:17 T-Sheet-- Draft Copy r 10/20 10:46 ECG/EKG gb Chart Complete MTDD
== END 2016-10-19 14:04 | disposition home or self-care (01) ==
LOC: M ED 10:58
DX: B34.9 Viral infection, unspecified (principal); J44.9 Chronic obstructive pulmonary disease, unspecified; E78.00 Pure hypercholesterolemia, unspecified; I25.10 Atherosclerotic heart disease of native coronary artery without angina pectoris; Z79.899 Other long term (current) drug therapy; Z79.82 Long term (current) use of aspirin; Z79.02 Long term (current) use of antithrombotics/antiplatelets; Z88.8 Allergy status to other drugs, medicaments and biological substances; F17.210 Nicotine dependence, cigarettes, uncomplicated; Z95.5 Presence of coronary angioplasty implant and graft
CPT/HCPCS: 36415; 71010; 80048; 83880; 85025; 87040; 87804; 93005; 93041; 94640; 96361; 96374; 99285; J2405

== ENCOUNTER → 2017-06-17 | Outpatient (REF) | payer OTHER, SELFPAY ==
[~2017-06-17] MED LIST changes: +PLAV1TAB2 PO; -PLAV75TA38 PO; +TRAZ50TA11 PO; -TRAZ50TA4 PO
[2017-06-17 12:28] LABS: MEAN CORPUSCULAR HEMOGLOBIN 31.5 pg (27.0-33.0); MEAN CORPUSCULAR HGB CONC 33.9 g/dl (32.0-36.5); RED CELL DISTRIBUTION WIDTH 13.4 % (11.5-14.5); WHITE BLOOD COUNT 6.2 10^3/uL (4.0-10.0)
[2017-06-17 12:52] LABS: ALBUMIN 4.1 GM/DL (3.2-5.2); ALBUMIN/GLOBULIN RATIO 1.14 (1.00-1.93); ALKALINE PHOSPHATASE 90 U/L (45-117); ALT/SGPT 44 U/L (12-78); ANION GAP 7 MEQ/L (8-16); AST/SGOT 19 U/L (15-37); BILIRUBIN,TOTAL 0.6 MG/DL (0.2-1.0); BLOOD UREA NITROGEN 12 MG/DL (7-18); CALCIUM LEVEL 9.5 MG/DL (8.5-10.1); CARBON DIOXIDE LEVEL 28 MEQ/L (21-32); CHLORIDE LEVEL 103 MEQ/L (98-107); CHOLESTEROL LEVEL 228 MG/DL (<200); CREATININE FOR GFR 0.86 MG/DL (0.70-1.30); FREE T4 0.92 NG/DL (0.76-1.46); GLOMERULAR FILTRATION RATE > 60.0 (>56); GLUCOSE, FASTING 113 MG/DL (70-105); POTASSIUM SERUM 4.1 MEQ/L (3.5-5.1); SODIUM LEVEL 138 MEQ/L (136-145); TOTAL PROTEIN 7.7 GM/DL (6.4-8.2); TRIGLYCERIDES LEVEL 355 MG/DL (<150)
== END ==
LOC: M SFHCADAM 10:09
PROVIDERS: ATTEND Family Medicine
DX: F32.9 Major depressive disorder, single episode, unspecified (principal); E11.9 Type 2 diabetes mellitus without complications; E78.2 Mixed hyperlipidemia

== ENCOUNTER → 2018-06-15 | Outpatient (REF) | payer OTHER ==
[2018-06-15 13:56] LABS: MALB URINE SIEMENS 15.1 MG/L
[2018-06-15 14:06] LABS: ALBUMIN/GLOBULIN RATIO 1.21 (1.00-1.93); ALKALINE PHOSPHATASE 86 U/L (45-117); ALT/SGPT 25 U/L (12-78); ANION GAP 12 MEQ/L (8-16); AST/SGOT 16 U/L (7-37); BILIRUBIN,TOTAL 0.5 MG/DL (0.2-1.0); BLOOD UREA NITROGEN 13 MG/DL (7-18); CALCIUM LEVEL 9.2 MG/DL (8.5-10.1); CARBON DIOXIDE LEVEL 24 MEQ/L (21-32); CHLORIDE LEVEL 106 MEQ/L (98-107); CHOLESTEROL LEVEL 211 MG/DL (<200); CHOLESTEROL RISK RATIO 3.981 (<5); CREATININE FOR GFR 0.71 MG/DL (0.70-1.30); GLOMERULAR FILTRATION RATE > 60.0 (>56); GLUCOSE, FASTING 92 MG/DL (70-100); HDL CHOLESTEROL 53 MG/DL (>40); LDL CHOLESTEROL 130 MG/DL (<100); NON-HDL-C 158 MG/DL; POTASSIUM SERUM 4.7 MEQ/L (3.5-5.1); SODIUM LEVEL 142 MEQ/L (136-145); TOTAL PROTEIN 7.3 GM/DL (6.4-8.2); TRIGLYCERIDES LEVEL 139 MG/DL (<150)
[2018-06-15 15:37] LABS: ESTIMATED AVERAGE GLUCOSE 117 MG/DL (60-110); HEMOGLOBIN A1c 5.7 %
== END ==
LOC: M SFHCADAM 09:24
DX: E11.9 Type 2 diabetes mellitus without complications (principal); E78.2 Mixed hyperlipidemia

== ENCOUNTER → 2019-06-14 | Outpatient (REF) | payer OTHER ==
[~2019-06-14] MED LIST changes: -ASPI1TAB PO; +ASPI81TA26 PO; -OXYB10TA PO; +OXYB10TA2 PO; +RANI-356 PO; -RANI1TAB6 PO; +TIZA4CAP PO; -TIZA4CAP3 PO; +TRAZ-252 PO; -TRAZ50TA11 PO
[2019-06-14 12:53] LABS: ALT/SGPT 28 U/L (12-78); BILIRUBIN,TOTAL 0.5 MG/DL (0.2-1.0); BLOOD UREA NITROGEN 14 MG/DL (7-18); CALCIUM LEVEL 9.3 MG/DL (8.5-10.1); CARBON DIOXIDE LEVEL 25 MEQ/L (21-32); CHLORIDE LEVEL 107 MEQ/L (98-107); CHOLESTEROL LEVEL 231 MG/DL (<200); CHOLESTEROL RISK RATIO 4.812 (<5); CREATININE FOR GFR 0.88 MG/DL (0.70-1.30); GLOMERULAR FILTRATION RATE > 60.0 (>56); GLUCOSE, FASTING 119 MG/DL (70-100); HDL CHOLESTEROL 48 MG/DL (>40); LDL CHOLESTEROL 141 MG/DL (<100); NON-HDL-C 183 MG/DL; POTASSIUM SERUM 4.1 MEQ/L (3.5-5.1); SODIUM LEVEL 140 MEQ/L (136-145); TOTAL PROTEIN 7.4 GM/DL (6.4-8.2); TRIGLYCERIDES LEVEL 208 MG/DL (<150)
[2019-06-14 12:56] LABS: HEMOGLOBIN A1c 5.7 %
[2019-06-14 13:20] LABS: CREATININE, URINE 17.1 MG/DL; MALB URINE SIEMENS 8.3 MG/L; MAU/CREAT RATIO 48.5 MCG/MG (0.0-30.0)
== END ==
LOC: M SFHCADAM 09:14
PROVIDERS: ATTEND Family Medicine
DX: E11.9 Type 2 diabetes mellitus without complications (principal); E78.2 Mixed hyperlipidemia

== ENCOUNTER → 2020-01-12 | Outpatient (REF) | payer OTHER ==
[~2020-01-12] MED LIST changes: -OXYB10TA2 PO; +OXYB10TA23 PO; -RANI-356 PO; +RANI-397 PO
[2020-01-12 13:47] LABS: HEMOGLOBIN A1c 6.2 %
[2020-01-12 14:01] LABS: CHOLESTEROL RISK RATIO 5.441 (<5)
== END ==
LOC: M SFHCADAM 10:27
PROVIDERS: ATTEND Family Medicine
DX: E78.2 Mixed hyperlipidemia (principal); E11.9 Type 2 diabetes mellitus without complications

== ENCOUNTER → 2020-07-19 | Outpatient (REF) | payer OTHER, SELFPAY ==
[2020-07-19 17:31] LABS: HEMATOCRIT 51.9 % (42.0-52.0); HEMOGLOBIN 17.3 g/dl (13.5-17.5); MEAN CORPUSCULAR HEMOGLOBIN 31.6 pg (27.0-33.0); MEAN CORPUSCULAR HGB CONC 33.3 g/dl (32.0-36.5); MEAN CORPUSCULAR VOLUME 94.9 fl (80.0-96.0); PLATELET COUNT, AUTOMATED 159 10^3/uL (150-450); RED BLOOD COUNT 5.47 10^6/uL (4.30-6.10); WHITE BLOOD COUNT 8.1 10^3/uL (4.0-10.0)
[2020-07-19 17:50] LABS: ALBUMIN 3.9 GM/DL (3.2-5.2); ALT/SGPT 34 U/L (12-78); BILIRUBIN,TOTAL 0.5 MG/DL (0.2-1.0); BLOOD UREA NITROGEN 18 MG/DL (7-18); CALCIUM LEVEL 9.2 MG/DL (8.5-10.1); CARBON DIOXIDE LEVEL 28 MEQ/L (21-32); CHLORIDE LEVEL 105 MEQ/L (98-107); CHOLESTEROL LEVEL 178 MG/DL (<200); CHOLESTEROL RISK RATIO 3.955 (<5); CREATININE FOR GFR 0.92 MG/DL (0.70-1.30); GLOMERULAR FILTRATION RATE > 60.0 (>56); GLUCOSE, FASTING 82 MG/DL (70-100); HDL CHOLESTEROL 45 MG/DL (>40); LDL CHOLESTEROL 71 MG/DL (<100); NON-HDL-C 133 MG/DL; POTASSIUM SERUM 4.4 MEQ/L (3.5-5.1); SODIUM LEVEL 139 MEQ/L (136-145); TOTAL PROTEIN 7.9 GM/DL (6.4-8.2); TRIGLYCERIDES LEVEL 309 MG/DL (<150)
[2020-07-19 18:57] LABS: HEMOGLOBIN A1c 5.8 %
[2020-07-24 19:07] LABS: TRANSFERRIN 270 mg/dL (177-329)
== END ==
LOC: M SFHCADAM 15:14
PROVIDERS: ATTEND Family Medicine
DX: I25.10 Atherosclerotic heart disease of native coronary artery without angina pectoris (principal); F32.9 Major depressive disorder, single episode, unspecified; E11.9 Type 2 diabetes mellitus without complications; E78.2 Mixed hyperlipidemia

== ENCOUNTER → 2021-10-09 | Outpatient (REF) | payer OTHER ==
[~2021-10-09] MED LIST changes: -CYMB60CA3 PO; +CYMB60CA4 PO
[2021-10-09 13:04] LABS: HEMATOCRIT 49.6 % (42.0-52.0); HEMOGLOBIN 16.7 g/dl (13.5-17.5); MEAN CORPUSCULAR HEMOGLOBIN 31.5 pg (27.0-33.0); MEAN CORPUSCULAR HGB CONC 33.7 g/dl (32.0-36.5); MEAN CORPUSCULAR VOLUME 93.4 fl (80.0-96.0); PLATELET COUNT, AUTOMATED 132 10^3/uL (150-450); RED BLOOD COUNT 5.31 10^6/uL (4.30-6.10); WHITE BLOOD COUNT 5.2 10^3/uL (4.0-10.0)
[2021-10-09 14:50] LABS: ALBUMIN 3.9 GM/DL (3.2-5.2); ALT/SGPT 31 U/L (12-78); BILIRUBIN,TOTAL 0.7 MG/DL (0.2-1.0); BLOOD UREA NITROGEN 13 MG/DL (7-18); CALCIUM LEVEL 8.9 MG/DL (8.5-10.1); CARBON DIOXIDE LEVEL 25 MEQ/L (21-32); CHLORIDE LEVEL 108 MEQ/L (98-107); CHOLESTEROL LEVEL 138 MG/DL (<200); CREATININE FOR GFR 0.88 MG/DL (0.70-1.30); GLOMERULAR FILTRATION RATE > 60.0 (>56); GLUCOSE, FASTING 105 MG/DL (70-100); HDL CHOLESTEROL 40 MG/DL (>40); LDL CHOLESTEROL 75 MG/DL (<100); NON-HDL-C 98 MG/DL; POTASSIUM SERUM 4.1 MEQ/L (3.5-5.1); SODIUM LEVEL 140 MEQ/L (136-145); TOTAL PROTEIN 7.2 GM/DL (6.4-8.2); TRIGLYCERIDES LEVEL 115 MG/DL (<150)
[2021-10-09 15:30] LABS: HEMOGLOBIN A1c 5.8 %
== END ==
LOC: M SFHCADAM 08:15
PROVIDERS: ATTEND Family Medicine
DX: E11.9 Type 2 diabetes mellitus without complications (principal); I25.10 Atherosclerotic heart disease of native coronary artery without angina pectoris; E78.2 Mixed hyperlipidemia; Z12.5 Encounter for screening for malignant neoplasm of prostate

== ENCOUNTER 2022-03-27 13:33 | Emergency (ER) | payer OTHER, SELFPAY ==
[~2022-03-27] VITALS: Ht 172.7 cm; Wt 106.3 kg
[2022-03-27 13:35] VITALS: BP 162/81
[2022-03-27] MEDS ORDERED: HYDR-3713 PO (14:11)
[2022-03-27] MEDS ORDERED: FAMO10TA50 PO (14:11)
[2022-03-27] MEDS ORDERED: KETOROLAC 60MG 2ML VIAL IM ONE (17:05)
[2022-03-27] MEDS ORDERED: MORPHINE 10 MG/ML 1ML VIAL IM ONE (17:05)
[2022-03-27] MEDS ORDERED: LIDOCAINE 4% CREAM 5GM (LMX4) TOP ONE (17:05)
[2022-03-27] MEDS ORDERED: methylPREDNISolone 125MG 2ML VIAL IM ONE (17:05)
[2022-03-27] MEDS ORDERED: MEDR4PAK PO (18:29)
[2022-03-27] MEDS ORDERED: LIDO1CRE2 TOP (18:29)
[2022-03-27] MEDS ORDERED: PERCOCET 5MG/325MG TAB PO ONE (18:35)
== END 2022-03-27 19:01 | disposition home or self-care (01) ==
LOC: M ED 13:33
DX: M46.1 Sacroiliitis, not elsewhere classified (principal); M48.061 Spinal stenosis, lumbar region without neurogenic claudication; I25.2 Old myocardial infarction; I25.10 Atherosclerotic heart disease of native coronary artery without angina pectoris; K21.9 Gastro-esophageal reflux disease without esophagitis; G89.29 Other chronic pain; M79.603 Pain in arm, unspecified; Z88.1 Allergy status to other antibiotic agents; Z79.899 Other long term (current) drug therapy; Z79.82 Long term (current) use of aspirin
CPT/HCPCS: 72131; 96372; 99282; J2270; J2930

== ENCOUNTER → 2022-04-01 | Outpatient (REF) | payer OTHER ==
[~2022-04-01] MED LIST changes: +FAMO10TA50 PO; +HYDR-3713 PO; +LIDO1CRE2 TOP; +MEDR4PAK PO
== END ==
LOC: M SFHCADAM 15:49
PROVIDERS: ATTEND Family Medicine
DX: Z51.81 Encounter for therapeutic drug level monitoring (principal); G54.0 Brachial plexus disorders

== ENCOUNTER → 2022-10-11 | Outpatient (CLI) | payer SELFPAY ==
[~2022-10-11] MED LIST changes: +CLOP75TA99 PO; -PLAV1TAB2 PO
== END ==
LOC: M RAD 09:19
PROVIDERS: ATTEND Orthopaedic Surgery
DX: M48.061 Spinal stenosis, lumbar region without neurogenic claudication (principal)

== ENCOUNTER → 2022-10-22 | Outpatient (REF) | payer OTHER ==
[2022-10-22 18:23] LABS: HEMOGLOBIN A1c 5.5 % (4.0-6.0)
[2022-10-22 18:29] LABS: BLOOD UREA NITROGEN 15 MG/DL (9-23); CALCIUM LEVEL 8.9 MG/DL (8.3-10.6); CARBON DIOXIDE LEVEL 23 MMOL/L (20-31); CHLORIDE LEVEL 107 MMOL/L (98-107); CREATININE FOR GFR 0.76 MG/DL (0.70-1.30); GLOMERULAR FILTRATION RATE > 60.0 (>49); GLUCOSE, FASTING 103 MG/DL (74-106); POTASSIUM SERUM 4.1 MMOL/L (3.5-5.1); SODIUM LEVEL 140 MMOL/L (136-145)
== END ==
LOC: M SFHCADAM 11:40
PROVIDERS: ATTEND Family Medicine
DX: E11.9 Type 2 diabetes mellitus without complications (principal)

== ENCOUNTER → 2022-10-28 | Outpatient (REF) | payer SELFPAY | LOC: M LAB REF 15:32 | PROVIDERS: ATTEND Otolaryngology | DX: L91.8 Other hypertrophic disorders of the skin (principal) ==

== ENCOUNTER → 2023-09-22 | Outpatient (REF) | payer OTHER ==
[~2023-09-22] MED LIST changes: +MELA10CA6 PO
[2023-09-22 17:20] LABS: HEMATOCRIT 39.3 % (42.0-52.0); HEMOGLOBIN 12.5 g/dl (13.5-17.5); MEAN CORPUSCULAR HEMOGLOBIN 30.5 pg (27.0-33.0); MEAN CORPUSCULAR HGB CONC 31.8 g/dl (32.0-36.5); MEAN CORPUSCULAR VOLUME 95.9 fl (80.0-96.0); PLATELET COUNT, AUTOMATED 188 10^3/uL (150-450); WHITE BLOOD COUNT 6.1 10^3/uL (4.0-10.0)
[2023-09-22 17:26] LABS: ALBUMIN 3.6 G/DL (3.2-5.2); ALKALINE PHOSPHATASE 88 U/L (46-116); ALT/SGPT 13 U/L (7.0-40); AST/SGOT 15 U/L (<34); BILIRUBIN,TOTAL 1.4 MG/DL (0.3-1.2); BLOOD UREA NITROGEN 15 MG/DL (9-23); CALCIUM LEVEL 9.1 MG/DL (8.3-10.6); CARBON DIOXIDE LEVEL 26 MMOL/L (20-31); CHLORIDE LEVEL 107 MMOL/L (98-107); CHOLESTEROL LEVEL 142 MG/DL (<200); CHOLESTEROL RISK RATIO 3.97 (<5); CREATININE FOR GFR 0.72 MG/DL (0.70-1.30); GLOMERULAR FILTRATION RATE > 60.0 (>49); GLUCOSE, FASTING 114 MG/DL (74-106); HDL CHOLESTEROL 35.7 MG/DL (>40); LDL CHOLESTEROL 84.9 MG/DL (<100); NON-HDL-C 106.3 MG/DL; POTASSIUM SERUM 4.4 MMOL/L (3.5-5.1); PSA SCREENING 1.95 NG/ML (< 4.00); SODIUM LEVEL 138 MMOL/L (136-145); TOTAL PROTEIN 7.1 G/DL (5.7-8.2); TRIGLYCERIDES LEVEL 107 MG/DL (<150)
[2023-09-22 17:28] LABS: FREE T4 0.97 NG/DL (0.89-1.76); THYROID STIMULATING HORMONE 2.177 uIU/ML (0.55-4.78)
[2023-09-22 18:02] LABS: HEMOGLOBIN A1c 5.3 % (4.0-6.0)
[2023-09-22 18:03] LABS: CREATININE, URINE 88.1 MG/DL; MAU/CREAT RATIO 4.5 MCG/MG (0.0-30.0)
== END ==
LOC: M SFHCADAM 11:57
PROVIDERS: ATTEND Family Medicine
DX: R06.09 Other forms of dyspnea (principal); R06.02 Shortness of breath; E11.9 Type 2 diabetes mellitus without complications; E78.2 Mixed hyperlipidemia; Z12.5 Encounter for screening for malignant neoplasm of prostate; I48.91 Unspecified atrial fibrillation

== ENCOUNTER → 2023-09-22 | Outpatient (CLI) | payer SELFPAY | LOC: M ADAMS 12:21 | PROVIDERS: ATTEND Family Medicine | DX: R06.09 Other forms of dyspnea (principal) ==

== ENCOUNTER 2023-09-23 14:39 | Inpatient (IN) | payer SELFPAY ==
[~2023-09-23] VITALS: Ht 172.7 cm; Wt 83.6 kg
[~2023-09-23 14:39] MED LIST changes: -ISOVUE-370 76% 100ML VIAL ONE; -MELA10CA6 PO
[2023-09-23] MEDS ORDERED: NS 500 ML IV ONE (15:00)
[2023-09-23 15:23] LABS: BASO % 0.7 % (0.0-1.0); EOS # 0.1 10^3/uL (0.0-0.5); EOS % 1.7 % (0.0-3.0); HEMATOCRIT 38.9 % (42.0-52.0); HEMOGLOBIN 12.4 g/dl (13.5-17.5); LYMPH # 1.2 10^3/uL (1.5-5.0); LYMPH % 20.9 % (24.0-44.0); MEAN CORPUSCULAR HEMOGLOBIN 30.1 pg (27.0-33.0); MEAN CORPUSCULAR HGB CONC 31.9 g/dl (32.0-36.5); MEAN CORPUSCULAR VOLUME 94.4 fl (80.0-96.0); MONO # 0.6 10^3/uL (0.0-0.8); MONO % 10.1 % (2.0-8.0); NEUTROPHILS # 3.9 10^3/uL (1.5-8.5); NEUTROPHILS % 66.1 % (36.0-66.0); PLATELET COUNT, AUTOMATED 183 10^3/uL (150-450); RED BLOOD COUNT 4.12 10^6/uL (4.30-6.10); WHITE BLOOD COUNT 5.9 10^3/uL (4.0-10.0)
[2023-09-23 15:34] LABS: INR 1.26; PROTHROMBIN TIME 15.4 SECONDS (12.5-14.5)
[2023-09-23 15:35] LABS: PARTIAL THROMBOPLASTIN TIME 32.2 SECONDS (24.8-34.2)
[2023-09-23 15:55] LABS: CK-MB VALUE MASS < 1.0 NG/ML (<3.6)
[2023-09-23 15:59] LABS: ALBUMIN 3.6 G/DL (3.2-5.2); ALKALINE PHOSPHATASE 93 U/L (46-116); ALT/SGPT 17 U/L (7.0-40); AST/SGOT 17 U/L (<34); BILIRUBIN,DIRECT 0.5 MG/DL (<0.4); BILIRUBIN,TOTAL 1.1 MG/DL (0.3-1.2); BLOOD UREA NITROGEN 15 MG/DL (9-23); CALCIUM LEVEL 8.6 MG/DL (8.3-10.6); CARBON DIOXIDE LEVEL 25 MMOL/L (20-31); CHLORIDE LEVEL 111 MMOL/L (98-107); CREATININE FOR GFR 0.78 MG/DL (0.70-1.30); GLOMERULAR FILTRATION RATE > 60.0 (>49); GLUCOSE, FASTING 87 MG/DL (74-106); MAGNESIUM LEVEL 1.9 MG/DL (1.8-2.4); PHOSPHORUS LEVEL 3.7 MG/DL (2.4-5.1); POTASSIUM SERUM 4.4 MMOL/L (3.5-5.1); SODIUM LEVEL 141 MMOL/L (136-145); THYROID STIMULATING HORMONE 2.503 uIU/ML (0.55-4.78); TOTAL PROTEIN 7.1 G/DL (5.7-8.2)
[2023-09-23 16:00] LABS: FREE T4 0.97 NG/DL (0.89-1.76)
[2023-09-23 16:02] LABS: CPK CREATINE PHOSPHOKINASE 44 U/L (46-171); MB/CK RELATIVE INDEX 2.27 (< OR =4)
[2023-09-23] MEDS ORDERED: FUROSEMIDE 40MG/4ML VIAL IV ONE ×2 (16:25→18:00)
[2023-09-23] MEDS ORDERED: GLUCOSE 4GM CHEW TABLET PO PRN (17:15)
[2023-09-23] MEDS ORDERED: DEXTROSE 50% 50ML SYRINGE IV PRN (17:15)
[2023-09-23] MEDS ORDERED: GLUCAGON INJ 1MG VIAL SC PRN (17:15)
[2023-09-23] MEDS: INSULIN LISPRO (NovoLOG) PER UNIT SC SCH (17:30)
[2023-09-23] MEDS: MAG SULF 1GM/100ML (MAG RUN) 1 GM in IV 1 EA IV SCH ×2 (17:43→18:46)
[2023-09-23] MEDS: NORCO, ANEXSIA 5/325MG TABLET (HYDROcodone/ACETAMINOPHEN) PO PRN (18:01)
[2023-09-23] MEDS ORDERED: MELA10CA6 PO (18:50)
[2023-09-23] MEDS ORDERED: HOME MED LIST COMPLETE! XX SCH (18:55)
[2023-09-23 20:52] LABS: CHOLESTEROL LEVEL 136 MG/DL (<200); CHOLESTEROL RISK RATIO 3.78 (<5); HDL CHOLESTEROL 35.9 MG/DL (>40); LDL CHOLESTEROL 80.1 MG/DL (<100); NON-HDL-C 100.1 MG/DL; TRIGLYCERIDES LEVEL 100 MG/DL (<150)
[2023-09-23 20:59] LABS: PROCALCITONIN <0.04 ng/ml
[2023-09-23 21:02] LABS: HEMOGLOBIN A1c 5.4 % (4.0-6.0)
[2023-09-23] MEDS: PRAVASTATIN 20 MG TAB PO SCH (21:46)
[2023-09-23 22:15] VITALS: BP 149/63; TEMP 97.2; O2SAT 95
[2023-09-24] VITALS (8 sets, daily range): BP systolic 83–128; BP diastolic 58–70; TEMP 96–98.7; O2SAT 95–99
[2023-09-24] MEDS: NORCO, ANEXSIA 5/325MG TABLET (HYDROcodone/ACETAMINOPHEN) PO PRN ×4 (00:02→20:11)
[2023-09-24] MEDS ORDERED: DULoxetine 30MG CAPSULE (CYMBALTA) PO ONE (00:30)
[2023-09-24 02:15] LABS: MAGNESIUM LEVEL 2.3 MG/DL (1.8-2.4); POTASSIUM SERUM 3.5 MMOL/L (3.5-5.1)
[2023-09-24] MEDS ORDERED: POTASSIUM CHLORIDE 10% LIQ 20MEQ/15ML UDC PO ONE (03:20)
[2023-09-24] MEDS: MAG SULF 1GM/100ML (MAG RUN) 1 GM in IV 1 EA IV SCH ×2 (03:57→04:53)
[2023-09-24 06:58] LABS: HEMATOCRIT 37.2 % (42.0-52.0); HEMOGLOBIN 12.2 g/dl (13.5-17.5); MEAN CORPUSCULAR HEMOGLOBIN 30.6 pg (27.0-33.0); MEAN CORPUSCULAR HGB CONC 32.8 g/dl (32.0-36.5); MEAN CORPUSCULAR VOLUME 93.2 fl (80.0-96.0); PLATELET COUNT, AUTOMATED 184 10^3/uL (150-450); RED BLOOD COUNT 3.99 10^6/uL (4.30-6.10); WHITE BLOOD COUNT 6.6 10^3/uL (4.0-10.0)
[2023-09-24 07:25] LABS: ALBUMIN 3.5 G/DL (3.2-5.2); ALKALINE PHOSPHATASE 86 U/L (46-116); ALT/SGPT 18 U/L (7.0-40); AST/SGOT 18 U/L (<34); BILIRUBIN,TOTAL 1.3 MG/DL (0.3-1.2); BLOOD UREA NITROGEN 16 MG/DL (9-23); CALCIUM LEVEL 8.6 MG/DL (8.3-10.6); CARBON DIOXIDE LEVEL 23 MMOL/L (20-31); CHLORIDE LEVEL 109 MMOL/L (98-107); CREATININE FOR GFR 0.73 MG/DL (0.70-1.30); GLOMERULAR FILTRATION RATE > 60.0 (>49); GLUCOSE, FASTING 147 MG/DL (74-106); POTASSIUM SERUM 4.2 MMOL/L (3.5-5.1); SODIUM LEVEL 139 MMOL/L (136-145)
[2023-09-24 07:36] LABS: PROCALCITONIN <0.04 ng/ml
[2023-09-24] MEDS: INSULIN LISPRO (NovoLOG) PER UNIT SC SCH ×3 (08:26→16:47)
[2023-09-24] MEDS ORDERED: DULoxetine 30MG CAPSULE (CYMBALTA) PO SCH ×3 (09:00→21:00)
[2023-09-24] MEDS ORDERED: METOPROLOL SUCC *XL* 25MG TAB (TopROL *XL*) PO SCH ×2 (09:00)
[2023-09-24] MEDS ORDERED: CLOPIDOGREL 75 MG TAB PO SCH (09:00)
[2023-09-24] MEDS ORDERED: ASPIRIN 81MG ENTERIC TABLET PO SCH (09:00)
[2023-09-24] MEDS ORDERED: SPIRONOLACTONE 25 MG TAB PO SCH (09:00)
[2023-09-24] MEDS ORDERED: ENOXAPARIN 40MG/0.4ML SYRINGE (J1650 PER 10MG) SC SCH (09:00)
[2023-09-24] MEDS: FUROSEMIDE 40MG/4ML VIAL IV SCH ×2 (09:55→16:47)
[2023-09-24] MEDS ORDERED: PILL CUTTER 1 EACH XX PRN (12:05)
[2023-09-24] MEDS: PRAVASTATIN 20 MG TAB PO SCH (20:11)
[2023-09-25] MEDS ORDERED: DAPAGLIFLOZIN PROPANEDIOL 10MG TABLET (FARXIGA) PO SCH (09:00)
[2023-09-25] MEDS ORDERED: LOSARTAN 25 MG TAB PO SCH (09:00)
== END 2023-09-24 21:40 | disposition left against medical advice (07) | DRG 194 ==
LOC: M ED 14:39 → M ED INP 16:39 → M ICU 22:25
PROVIDERS: ADMIT Internal Medicine; ATTEND Internal Medicine
PROC: B246ZZZ Ultrasonography of Right and Left Heart (ICD-10-PCS; principal; 2023-09-23)
DX: I50.23 Acute on chronic systolic (congestive) heart failure (principal); E11.51 Type 2 diabetes mellitus with diabetic peripheral angiopathy without gangrene; I25.10 Atherosclerotic heart disease of native coronary artery without angina pectoris; K21.9 Gastro-esophageal reflux disease without esophagitis; M79.2 Neuralgia and neuritis, unspecified; F17.200 Nicotine dependence, unspecified, uncomplicated; Z95.820 Peripheral vascular angioplasty status with implants and grafts; Z95.5 Presence of coronary angioplasty implant and graft; Z79.02 Long term (current) use of antithrombotics/antiplatelets; Z79.82 Long term (current) use of aspirin; Z79.899 Other long term (current) drug therapy; Z91.011 Allergy to milk products; Z88.8 Allergy status to other drugs, medicaments and biological substances; I47.20 Ventricular tachycardia, unspecified; I27.20 Pulmonary hypertension, unspecified; F32.A Depression, unspecified; E78.5 Hyperlipidemia, unspecified

== ENCOUNTER → 2023-09-23 | Outpatient (CLI) | payer SELFPAY | LOC: M CARPUL 13:00 | PROVIDERS: ATTEND Family Medicine | DX: R06.09 Other forms of dyspnea (principal) ==

== ENCOUNTER → 2023-09-23 | Outpatient (CLI) | payer SELFPAY ==
[~2023-09-23] MED LIST changes: +ISOVUE-370 76% 100ML VIAL ONE
== END ==
LOC: M PLAIMG 07:36
PROVIDERS: ATTEND Family Medicine
DX: R06.09 Other forms of dyspnea (principal); R06.02 Shortness of breath; I48.91 Unspecified atrial fibrillation

== ENCOUNTER → 2023-10-01 | Outpatient (REF) | payer OTHER ==
[~2023-10-01] MED LIST changes: +MELA10CA6 PO
[2023-10-01 16:51] LABS: BLOOD UREA NITROGEN 18 MG/DL (9-23); CALCIUM LEVEL 9.1 MG/DL (8.3-10.6); CARBON DIOXIDE LEVEL 27 MMOL/L (20-31); CHLORIDE LEVEL 107 MMOL/L (98-107); GLOMERULAR FILTRATION RATE > 60.0 (>49); GLUCOSE, FASTING 102 MG/DL (74-106); POTASSIUM SERUM 4.5 MMOL/L (3.5-5.1); SODIUM LEVEL 140 MMOL/L (136-145)
== END ==
LOC: M SFHCADAM 14:24
PROVIDERS: ATTEND Family Medicine
DX: I42.0 Dilated cardiomyopathy (principal)

== ENCOUNTER → 2023-10-08 | Outpatient (CLI) | payer SELFPAY ==
[2023-10-08 14:52] LABS: BLOOD UREA NITROGEN 15 MG/DL (9-23); CALCIUM LEVEL 8.6 MG/DL (8.3-10.6); CARBON DIOXIDE LEVEL 24 MMOL/L (20-31); CHLORIDE LEVEL 108 MMOL/L (98-107); CREATININE FOR GFR 0.69 MG/DL (0.70-1.30); GLOMERULAR FILTRATION RATE > 60.0 (>49); GLUCOSE, FASTING 92 MG/DL (74-106); POTASSIUM SERUM 4.4 MMOL/L (3.5-5.1); SODIUM LEVEL 138 MMOL/L (136-145)
== END ==
LOC: M PLALAB 11:30
PROVIDERS: ATTEND Family Medicine
DX: I42.0 Dilated cardiomyopathy (principal)

== ENCOUNTER → 2023-10-15 | Outpatient (REF) | payer OTHER ==
[2023-10-15 13:55] LABS: BLOOD UREA NITROGEN 15 MG/DL (9-23); CARBON DIOXIDE LEVEL 26 MMOL/L (20-31); CHLORIDE LEVEL 109 MMOL/L (98-107); CREATININE FOR GFR 0.71 MG/DL (0.70-1.30); GLOMERULAR FILTRATION RATE > 60.0 (>49); GLUCOSE, FASTING 97 MG/DL (74-106); POTASSIUM SERUM 4.4 MMOL/L (3.5-5.1); SODIUM LEVEL 141 MMOL/L (136-145)
== END ==
LOC: M SFHCADAM 10:23
PROVIDERS: ATTEND Physician Assistant
DX: I42.0 Dilated cardiomyopathy (principal)

== ENCOUNTER → 2023-10-22 | Outpatient (REF) | payer OTHER ==
[2023-10-22 17:20] LABS: BLOOD UREA NITROGEN 21 MG/DL (9-23); CARBON DIOXIDE LEVEL 25 MMOL/L (20-31); CHLORIDE LEVEL 107 MMOL/L (98-107); CREATININE FOR GFR 0.76 MG/DL (0.70-1.30); GLOMERULAR FILTRATION RATE > 60.0 (>49); GLUCOSE, FASTING 88 MG/DL (74-106); POTASSIUM SERUM 4.4 MMOL/L (3.5-5.1); SODIUM LEVEL 139 MMOL/L (136-145)
== END ==
LOC: M SFHCADAM 13:54
PROVIDERS: ATTEND Family Medicine
DX: I42.0 Dilated cardiomyopathy (principal)

== ENCOUNTER → 2024-03-02 | Outpatient (CLI) | payer OTHER ==
[2024-03-02 11:48] LABS: BASO % 0.6 % (0.0-1.0); EOS # 0.1 10^3/uL (0.0-0.5); EOS % 2.1 % (0.0-3.0); HEMATOCRIT 48.4 % (42.0-52.0); HEMOGLOBIN 16.6 g/dl (13.5-17.5); LYMPH # 0.8 10^3/uL (1.5-5.0); LYMPH % 14.8 % (24.0-44.0); MEAN CORPUSCULAR HEMOGLOBIN 32.8 pg (27.0-33.0); MEAN CORPUSCULAR HGB CONC 34.3 g/dl (32.0-36.5); MEAN CORPUSCULAR VOLUME 95.7 fl (80.0-96.0); MONO # 0.5 10^3/uL (0.0-0.8); MONO % 9.5 % (2.0-8.0); NEUTROPHILS # 3.8 10^3/uL (1.5-8.5); NEUTROPHILS % 72.8 % (36.0-66.0); PLATELET COUNT, AUTOMATED 121 10^3/uL (150-450); RED BLOOD COUNT 5.06 10^6/uL (4.30-6.10); WHITE BLOOD COUNT 5.3 10^3/uL (4.0-10.0)
[2024-03-02 12:07] LABS: BLOOD UREA NITROGEN 16 MG/DL (9-23); CALCIUM LEVEL 9.2 MG/DL (8.3-10.6); CARBON DIOXIDE LEVEL 27 MMOL/L (20-31); CHLORIDE LEVEL 108 MMOL/L (98-107); CREATININE FOR GFR 0.76 MG/DL (0.70-1.30); GLOMERULAR FILTRATION RATE > 60.0 (>49); GLUCOSE, FASTING 131 MG/DL (74-106); POTASSIUM SERUM 4.3 MMOL/L (3.5-5.1); SODIUM LEVEL 141 MMOL/L (136-145)
== END ==
LOC: M LAB 11:13
PROVIDERS: ATTEND Internal Medicine Cardiovascular Disease
DX: I50.22 Chronic systolic (congestive) heart failure (principal)

== ENCOUNTER → 2024-03-16 | Outpatient (REF) | payer OTHER ==
[2024-03-16 19:09] LABS: HEMATOCRIT 48.1 % (42.0-52.0); HEMOGLOBIN 15.9 g/dl (13.5-17.5); MEAN CORPUSCULAR HEMOGLOBIN 32.5 pg (27.0-33.0); MEAN CORPUSCULAR HGB CONC 33.1 g/dl (32.0-36.5); MEAN CORPUSCULAR VOLUME 98.4 fl (80.0-96.0); PLATELET COUNT, AUTOMATED 123 10^3/uL (150-450); RED BLOOD COUNT 4.89 10^6/uL (4.30-6.10); WHITE BLOOD COUNT 5.8 10^3/uL (4.0-10.0)
[2024-03-16 19:36] LABS: ALBUMIN 3.7 G/DL (3.2-5.2); ALKALINE PHOSPHATASE 83 U/L (46-116); ALT/SGPT 18 U/L (7.0-40); AST/SGOT 13 U/L (<34); BILIRUBIN,TOTAL 0.5 MG/DL (0.3-1.2); BLOOD UREA NITROGEN 16 MG/DL (9-23); CARBON DIOXIDE LEVEL 29 MMOL/L (20-31); CHLORIDE LEVEL 107 MMOL/L (98-107); CREATININE FOR GFR 0.75 MG/DL (0.70-1.30); GLOMERULAR FILTRATION RATE > 60.0 (>49); GLUCOSE, FASTING 75 MG/DL (74-106); POTASSIUM SERUM 4.6 MMOL/L (3.5-5.1); SODIUM LEVEL 140 MMOL/L (136-145); TOTAL PROTEIN 7.1 G/DL (5.7-8.2)
== END ==
LOC: M SFHCADAM 14:59
PROVIDERS: ATTEND Physician Assistant
DX: I49.9 Cardiac arrhythmia, unspecified (principal); R00.2 Palpitations

== ENCOUNTER → 2024-03-16 | Outpatient (CLI) | payer OTHER | LOC: M ADAMS 15:07 | PROVIDERS: ATTEND Physician Assistant | DX: R00.2 Palpitations (principal) ==

== ENCOUNTER → 2024-05-30 | Outpatient (CLI) | payer OTHER | LOC: M PLAIMG 09:42 | PROVIDERS: ATTEND Internal Medicine Cardiovascular Disease | DX: I50.22 Chronic systolic (congestive) heart failure (principal); I34.0 Nonrheumatic mitral (valve) insufficiency; I27.29 Other secondary pulmonary hypertension ==

== ENCOUNTER 2024-07-18 15:57 | Observation (INO) | payer OTHER ==
[~2024-07-18] VITALS: Ht 172.7 cm; Wt 90.2 kg
[2024-07-18] MEDS: MORPHINE 2 MG/ML 1ML VIAL IV PRN (17:52)
[2024-07-18] MEDS: BOOSTRIX VACCINE (TETANUS/DIPHTH/ACEL. PERTUSSIS) 0.5ML SYR IM ONE (17:56)
[2024-07-18] MEDS: ceFAZolin SOD 2 GM in IV 1 EA IV ONE (17:56)
[2024-07-18 18:07] LABS: BASO % 0.3 % (0.0-1.0); EOS # 0.2 10^3/uL (0.0-0.5); EOS % 1.7 % (0.0-3.0); HEMATOCRIT 46.8 % (42.0-52.0); HEMOGLOBIN 15.7 g/dl (13.5-17.5); LYMPH % 10.3 % (24.0-44.0); MEAN CORPUSCULAR HEMOGLOBIN 32.2 pg (27.0-33.0); MEAN CORPUSCULAR HGB CONC 33.5 g/dl (32.0-36.5); MEAN CORPUSCULAR VOLUME 95.9 fl (80.0-96.0); MONO # 0.9 10^3/uL (0.0-0.8); MONO % 9.6 % (2.0-8.0); NEUTROPHILS # 7.2 10^3/uL (1.5-8.5); NEUTROPHILS % 77.8 % (36.0-66.0); PLATELET COUNT, AUTOMATED 124 10^3/uL (150-450); RED BLOOD COUNT 4.88 10^6/uL (4.30-6.10); WHITE BLOOD COUNT 9.2 10^3/uL (4.0-10.0)
[2024-07-18 18:27] LABS: INR 1.06; PARTIAL THROMBOPLASTIN TIME 28.4 SECONDS (24.8-34.2); PROTHROMBIN TIME 14.1 SECONDS (12.5-14.5)
[2024-07-18 18:30] LABS: ALBUMIN 3.8 G/DL (3.2-5.2); ALKALINE PHOSPHATASE 79 U/L (40-129); ALT/SGPT 14 U/L (7.0-40); AST/SGOT 12 U/L (<34); BILIRUBIN,DIRECT 0.3 MG/DL (<0.4); BILIRUBIN,TOTAL 0.8 MG/DL (0.3-1.2); BLOOD UREA NITROGEN 11 MG/DL (9-23); CALCIUM LEVEL 9.2 MG/DL (8.3-10.6); CARBON DIOXIDE LEVEL 24 MMOL/L (20-31); CHLORIDE LEVEL 109 MMOL/L (98-107); CREATININE FOR GFR 0.77 MG/DL (0.70-1.30); GLOMERULAR FILTRATION RATE > 60.0 (>49); GLUCOSE, FASTING 99 MG/DL (74-106); POTASSIUM SERUM 4.1 MMOL/L (3.5-5.1); SODIUM LEVEL 140 MMOL/L (136-145); TOTAL PROTEIN 7.5 G/DL (5.7-8.2)
[2024-07-18] MEDS ORDERED: BENA25CA4 PO (19:39)
[2024-07-18] MEDS ORDERED: ENTR1TAB PO (19:39)
[2024-07-18] MEDS ORDERED: NITR0.4S14 SL (19:39)
[2024-07-18] MEDS ORDERED: FAMO1TAB11 PO (19:39)
[2024-07-18] MEDS ORDERED: MELA5TAB7 PO (19:39)
[2024-07-18] MEDS ORDERED: HOME MED LIST COMPLETE! XX SCH (19:40)
[2024-07-18] MEDS ORDERED: ONDANSETRON 4MG 2ML VIAL IV PRN (19:55)
[2024-07-18] MEDS ORDERED: NALOXONE INJ 0.4MG/1ML VIAL IV PRN (19:55)
[2024-07-18] MEDS ORDERED: MAALOX 30 ML SUSP *UDC PO PRN (19:55)
[2024-07-18] MEDS ORDERED: NICOTINE 21MG/24HR 1 EA TRANSDERMAL TD PRN (19:55)
[2024-07-18] MEDS ORDERED: MOM 30ML SUSPENSION UDC PO PRN (19:55)
[2024-07-18] MEDS ORDERED: ACETAMINOPHEN 325 MG TAB PO PRN (19:55)
[2024-07-18] MEDS: HYDROMORPHONE HCL 0.5 MG/ 0.5 ML SYRINGE IV PRN (20:18)
[2024-07-18] MEDS ORDERED: NITROGLYCERIN 0.4MG SUBL TABLET SL PRN (21:00)
[2024-07-18] MEDS: ENTRESTO 24-26MG TABLET (SACUBITRIL/VALSARTAN) PO SCH (21:00)
[2024-07-18] MEDS: DOCUSATE SODIUM 100MG CAPSULE PO SCH (21:07)
[2024-07-18] MEDS ORDERED: ALBUTEROL 90 MCG/ACT 8GM HFA INHALER INH PRN (21:20)
[2024-07-18 21:49] VITALS: BP 127/74; TEMP 97.3; O2SAT 96
[2024-07-18 22:00] VITALS: O2SAT 97
[2024-07-18] MEDS: ENTRESTO 24-26MG TABLET (SACUBITRIL/VALSARTAN) PO ONE (22:21)
[2024-07-18] MEDS: PRAVASTATIN 20 MG TAB PO SCH (22:22)
[2024-07-18] MEDS: RAMELTEON 8 MG TAB (ROZEREM) PO PRN (22:29)
[2024-07-18] MEDS ORDERED: RAMELTEON 8 MG TAB (ROZEREM) PO PRN (22:30)
[2024-07-18 23:00] VITALS: O2SAT 95
[2024-07-18 23:15] VITALS: BP 119/53; TEMP 97.6; O2SAT 95
[2024-07-18] MEDS: HYDROmorphone HCL 2MG/ML 1ML VIAL IV PRN (23:17)
[2024-07-19] VITALS (8 sets, daily range): BP systolic 98–110; BP diastolic 56–60; TEMP 97–97.4; O2SAT 94–99
[2024-07-19] MEDS: MORPHINE 2 MG/ML 1ML VIAL IV ONE (00:32)
[2024-07-19] MEDS: ceFAZolin SOD 2 GM in IV 1 EA IV SCH (02:20)
[2024-07-19 05:40] LABS: HEMATOCRIT 42.9 % (42.0-52.0); HEMOGLOBIN 14.5 g/dl (13.5-17.5); MEAN CORPUSCULAR HEMOGLOBIN 31.9 pg (27.0-33.0); MEAN CORPUSCULAR HGB CONC 33.8 g/dl (32.0-36.5); MEAN CORPUSCULAR VOLUME 94.3 fl (80.0-96.0); PLATELET COUNT, AUTOMATED 132 10^3/uL (150-450); RED BLOOD COUNT 4.55 10^6/uL (4.30-6.10); WHITE BLOOD COUNT 6.9 10^3/uL (4.0-10.0)
[2024-07-19 06:03] LABS: ALBUMIN 3.4 G/DL (3.2-5.2); ALKALINE PHOSPHATASE 74 U/L (40-129); ALT/SGPT 13 U/L (7.0-40); AST/SGOT 12 U/L (<34); BILIRUBIN,TOTAL 0.9 MG/DL (0.3-1.2); BLOOD UREA NITROGEN 14 MG/DL (9-23); CALCIUM LEVEL 8.8 MG/DL (8.3-10.6); CARBON DIOXIDE LEVEL 27 MMOL/L (20-31); CHLORIDE LEVEL 110 MMOL/L (98-107); CREATININE FOR GFR 0.73 MG/DL (0.70-1.30); GLOMERULAR FILTRATION RATE > 60.0 (>49); GLUCOSE, FASTING 105 MG/DL (74-106); MAGNESIUM LEVEL 1.9 MG/DL (1.8-2.4); SODIUM LEVEL 141 MMOL/L (136-145); TOTAL PROTEIN 6.7 G/DL (5.7-8.2)
[2024-07-19] MEDS ORDERED: ONDANSETRON 4MG 2ML VIAL As Ordered ONE (07:17)
[2024-07-19] MEDS ORDERED: dexmedeTOMIDine (4MCG/ML)200MCG/50ML BTL (PRECEDEX) As Ordered ONE (07:18)
[2024-07-19] MEDS ORDERED: LIDOCAINE 2% 100MG/5ML SDV (FOR ANES.) As Ordered ONE (07:18)
[2024-07-19] MEDS ORDERED: propofoL 200 MG/20 ML VIAL As Ordered ONE (07:18)
[2024-07-19] MEDS ORDERED: VASOPRESSIN INJ 20UNITS/ML 1ML VIAL As Ordered ONE (08:46)
[2024-07-19] MEDS ORDERED: MIDAZOLAM INJ 2MG/2ML VIAL As Ordered ONE (08:51)
[2024-07-19] MEDS ORDERED: fentaNYL 100 MCG/2 ML INJECTION As Ordered ONE (08:51)
[2024-07-19] MEDS ORDERED: METO1TAB32 PO (09:19)
[2024-07-19] MEDS: ceFAZolin 2 GM/D5W 50 ML IV BAG As Ordered ONE (09:29)
[2024-07-19] MEDS: LIDOCAINE 1% SDV 30ML VIAL As Ordered ONE (09:50)
[2024-07-19] MEDS ORDERED: GLYCOPYRROLATE INJ 0.2 MG/ML 2 ML VIAL As Ordered ONE (09:55)
[2024-07-19] MEDS ORDERED: METOCLOPRAMIDE INJ 10MG/2ML VIAL As Ordered ONE (09:55)
[2024-07-19] MEDS ORDERED: oxyCODONE 5MG TAB PO PRN (10:05)
[2024-07-19] MEDS ORDERED: fentaNYL 100 MCG/2 ML INJECTION IV PRN (10:05)
[2024-07-19] MEDS ORDERED: MORPHINE 2 MG/ML 1ML VIAL IV PRN (10:05)
[2024-07-19] MEDS ORDERED: ONDANSETRON 4MG 2ML VIAL IV PRN (10:05)
[2024-07-19] MEDS: FAMOTIDINE 20 MG TAB PO SCH (11:14)
[2024-07-19] MEDS: DULoxetine 30MG CAPSULE (CYMBALTA) PO SCH (11:14)
[2024-07-19] MEDS: PANTOPRAZOLE 40MG TAB (PROTONIX) PO SCH (11:14)
[2024-07-19] MEDS ORDERED: ACET32TAB PO (11:35)
[2024-07-19] MEDS ORDERED: PROB250C PO (11:35)
[2024-07-19] MEDS ORDERED: CLIN150C17 PO (11:35)
[2024-07-19] MEDS ORDERED: COLA100C5 PO (11:35)
== END 2024-07-19 12:17 | disposition left against medical advice (07) ==
LOC: M ED 15:57 → EDBD 15:57 → M ED INP 19:53 → M PCU 21:45
PROVIDERS: ADMIT Student in an Organized Health Care Education/Training Program; ATTEND Student in an Organized Health Care Education/Training Program
DX: S61.012A Laceration without foreign body of left thumb without damage to nail, initial encounter (principal); S62.202B Unspecified fracture of first metacarpal bone, left hand, initial encounter for open fracture; S56.022A Laceration of flexor muscle, fascia and tendon of left thumb at forearm level, initial encounter; S56.322A Laceration of extensor or abductor muscles, fascia and tendons of left thumb at forearm level, initial encounter; S64.32XA Injury of digital nerve of left thumb, initial encounter; W31.2XXA Contact with powered woodworking and forming machines, initial encounter; Y92.008 Other place in unspecified non-institutional (private) residence as the place of occurrence of the external cause; Y93.H3 Activity, building and construction; Y99.8 Other external cause status; Z79.02 Long term (current) use of antithrombotics/antiplatelets; R05.3 Chronic cough; Z95.5 Presence of coronary angioplasty implant and graft; M54.9 Dorsalgia, unspecified; M79.603 Pain in arm, unspecified; I25.10 Atherosclerotic heart disease of native coronary artery without angina pectoris; I11.0 Hypertensive heart disease with heart failure; I50.22 Chronic systolic (congestive) heart failure; G47.33 Obstructive sleep apnea (adult) (pediatric); E78.5 Hyperlipidemia, unspecified; E88.810 Metabolic syndrome; E03.9 Hypothyroidism, unspecified; F32.A Depression, unspecified; Z98.890 Other specified postprocedural states; Z83.3 Family history of diabetes mellitus; Z82.49 Family history of ischemic heart disease and other diseases of the circulatory system; Z81.8 Family history of other mental and behavioral disorders; Z80.3 Family history of malignant neoplasm of breast; Z83.2 Family history of diseases of the blood and blood-forming organs and certain disorders involving the immune mechanism; F17.210 Nicotine dependence, cigarettes, uncomplicated; Z88.8 Allergy status to other drugs, medicaments and biological substances; Z91.011 Allergy to milk products; Z79.899 Other long term (current) drug therapy; Z79.82 Long term (current) use of aspirin
CPT/HCPCS: 11012; 13132; 13133; 36415; 71045; 73140; 80048; 80053; 80076; 83735; 85025; 85027; 85610; 85730; 86850; 86900; 86901; 90471; 90715; 93005; 96365; 96366; 96375; 96376; 99285; J0665; J0690; J1100; J1171; J1596; J2250; J2405; J2598; J3010

== ENCOUNTER → 2024-07-25 | Outpatient (CLI) | payer OTHER ==
[~2024-07-25] MED LIST changes: +ACET32TAB PO; +BENA25CA4 PO; +CLIN150C17 PO; +COLA100C5 PO; +ENTR1TAB PO; +FAMO1TAB11 PO; +MELA5TAB7 PO; +METO1TAB32 PO; +NITR0.4S14 SL; +PROB250C PO
[2024-07-25 12:41] LABS: BASO % 0.8 % (0.0-1.0); EOS # 0.3 10^3/uL (0.0-0.5); EOS % 5.7 % (0.0-3.0); HEMATOCRIT 44.3 % (42.0-52.0); HEMOGLOBIN 14.7 g/dl (13.5-17.5); LYMPH # 1.5 10^3/uL (1.5-5.0); LYMPH % 28.4 % (24.0-44.0); MEAN CORPUSCULAR HEMOGLOBIN 31.7 pg (27.0-33.0); MEAN CORPUSCULAR HGB CONC 33.2 g/dl (32.0-36.5); MEAN CORPUSCULAR VOLUME 95.5 fl (80.0-96.0); MONO # 0.7 10^3/uL (0.0-0.8); MONO % 13.7 % (2.0-8.0); NEUTROPHILS # 2.6 10^3/uL (1.5-8.5); PLATELET COUNT, AUTOMATED 141 10^3/uL (150-450); RED BLOOD COUNT 4.64 10^6/uL (4.30-6.10); WHITE BLOOD COUNT 5.1 10^3/uL (4.0-10.0)
[2024-07-25 13:03] LABS: ALBUMIN 3.6 G/DL (3.2-5.2); ALKALINE PHOSPHATASE 87 U/L (40-129); ALT/SGPT 19 U/L (7.0-40); AST/SGOT 10 U/L (<34); BILIRUBIN,TOTAL 0.5 MG/DL (0.3-1.2); BLOOD UREA NITROGEN 10 MG/DL (9-23); CALCIUM LEVEL 9.4 MG/DL (8.3-10.6); CARBON DIOXIDE LEVEL 29 MMOL/L (20-31); CHLORIDE LEVEL 105 MMOL/L (98-107); CREATININE FOR GFR 0.72 MG/DL (0.70-1.30); GLOMERULAR FILTRATION RATE > 60.0 (>49); GLUCOSE, FASTING 86 MG/DL (74-106); POTASSIUM SERUM 4.2 MMOL/L (3.5-5.1); SODIUM LEVEL 140 MMOL/L (136-145); TOTAL PROTEIN 7.3 G/DL (5.7-8.2)
== END ==
LOC: M LAB 10:56
PROVIDERS: ATTEND Internal Medicine Cardiovascular Disease
DX: I50.22 Chronic systolic (congestive) heart failure (principal)

== ENCOUNTER → 2024-08-26 | Outpatient (CLI) | payer OTHER ==
[~2024-08-26] MED LIST changes: -LIDO1CRE2 TOP; +LIDO4CRE12 TOP
[2024-08-26 12:10] LABS: ALBUMIN 3.3 G/DL (3.2-5.2); BLOOD UREA NITROGEN 16 MG/DL (9-23); CALCIUM LEVEL 8.8 MG/DL (8.3-10.6); CARBON DIOXIDE LEVEL 23 MMOL/L (20-31); CHLORIDE LEVEL 110 MMOL/L (98-107); CREATININE FOR GFR 0.82 MG/DL (0.70-1.30); GLOMERULAR FILTRATION RATE > 60.0 (>49); GLUCOSE, FASTING 142 MG/DL (74-106); PHOSPHORUS LEVEL 2.8 MG/DL (2.4-5.1); POTASSIUM SERUM 3.7 MMOL/L (3.5-5.1); SODIUM LEVEL 141 MMOL/L (136-145)
[2024-08-26 12:13] LABS: THYROID STIMULATING HORMONE 1.461 uIU/ML (0.55-4.78)
== END ==
LOC: M LAB 10:47
PROVIDERS: ATTEND Internal Medicine Cardiovascular Disease
DX: I50.22 Chronic systolic (congestive) heart failure (principal); I47.20 Ventricular tachycardia, unspecified

== ENCOUNTER 2024-09-22 13:43 | Emergency (ER) | payer OTHER ==
[~2024-09-22] VITALS: Ht 172.7 cm; Wt 84.6 kg
[2024-09-22 15:00] LABS: BASO % 0.3 % (0.0-1.0); EOS % 0.3 % (0.0-3.0); HEMATOCRIT 46.6 % (42.0-52.0); HEMOGLOBIN 16.1 g/dl (13.5-17.5); LYMPH # 0.5 10^3/uL (1.5-5.0); LYMPH % 15.6 % (24.0-44.0); MEAN CORPUSCULAR HEMOGLOBIN 31.9 pg (27.0-33.0); MEAN CORPUSCULAR HGB CONC 34.5 g/dl (32.0-36.5); MEAN CORPUSCULAR VOLUME 92.3 fl (80.0-96.0); MONO # 0.5 10^3/uL (0.0-0.8); MONO % 16.9 % (2.0-8.0); NEUTROPHILS # 2.1 10^3/uL (1.5-8.5); NEUTROPHILS % 66.3 % (36.0-66.0); PLATELET COUNT, AUTOMATED 107 10^3/uL (150-450); RED BLOOD COUNT 5.05 10^6/uL (4.30-6.10); WHITE BLOOD COUNT 3.1 10^3/uL (4.0-10.0)
[2024-09-22 15:29] LABS: ALBUMIN 3.6 G/DL (3.2-5.2); ALKALINE PHOSPHATASE 76 U/L (40-129); ALT/SGPT 41 U/L (7.0-40); AST/SGOT 42 U/L (<34); BILIRUBIN,DIRECT 0.2 MG/DL (<0.4); BILIRUBIN,TOTAL 0.5 MG/DL (0.3-1.2); BLOOD UREA NITROGEN 30 MG/DL (9-23); CALCIUM LEVEL 9.4 MG/DL (8.3-10.6); CARBON DIOXIDE LEVEL 18 MMOL/L (20-31); CHLORIDE LEVEL 106 MMOL/L (98-107); CREATININE FOR GFR 1.15 MG/DL (0.70-1.30); GLOMERULAR FILTRATION RATE > 60.0 (>49); GLUCOSE, FASTING 124 MG/DL (74-106); SODIUM LEVEL 137 MMOL/L (136-145); TOTAL PROTEIN 7.5 G/DL (5.7-8.2)
[2024-09-22 15:31] LABS: THYROID STIMULATING HORMONE 1.847 uIU/ML (0.55-4.78)
[2024-09-22 18:19] VITALS: BP 110/61; TEMP 96.9; O2SAT 97
== END 2024-09-22 19:02 | disposition left against medical advice (07) ==
LOC: M ED 13:43
DX: Z53.21 Procedure and treatment not carried out due to patient leaving prior to being seen by health care provider (principal)

== ENCOUNTER → 2024-09-23 | Outpatient (CLI) | payer OTHER ==
[2024-09-23 18:08] LABS: BLOOD UREA NITROGEN 29 MG/DL (9-23); CALCIUM LEVEL 9.4 MG/DL (8.3-10.6); CARBON DIOXIDE LEVEL 22 MMOL/L (20-31); CHLORIDE LEVEL 107 MMOL/L (98-107); GLOMERULAR FILTRATION RATE > 60.0 (>49); GLUCOSE, FASTING 98 MG/DL (74-106); PHOSPHORUS LEVEL 3.8 MG/DL (2.4-5.1); POTASSIUM SERUM 4.2 MMOL/L (3.5-5.1); SODIUM LEVEL 139 MMOL/L (136-145)
== END ==
LOC: M PLALAB 16:24
PROVIDERS: ATTEND Internal Medicine Cardiovascular Disease
DX: I50.22 Chronic systolic (congestive) heart failure (principal); I47.20 Ventricular tachycardia, unspecified

== ENCOUNTER → 2024-09-27 | Outpatient (REF) | payer OTHER ==
[2024-09-27 18:40] LABS: CHOLESTEROL RISK RATIO 3.28 (<5); HDL CHOLESTEROL 41.4 MG/DL (>40); LDL CHOLESTEROL 70.2 MG/DL (<100); NON-HDL-C 94.6 MG/DL; PSA SCREENING 1.49 NG/ML (< 4.00)
[2024-09-27 18:42] LABS: FREE T4 1.37 NG/DL (0.89-1.76)
[2024-09-27 18:43] LABS: THYROID STIMULATING HORMONE 2.849 uIU/ML (0.55-4.78)
[2024-09-27 18:46] LABS: HEMOGLOBIN A1c 5.6 % (4.0-6.0)
[2024-09-27 18:57] LABS: MAU/CREAT RATIO 9.1 MCG/MG (0.0-30.0)
== END ==
LOC: M SFHCADAM 10:54
PROVIDERS: ATTEND Family Medicine
DX: E03.8 Other specified hypothyroidism (principal); E11.9 Type 2 diabetes mellitus without complications; Z12.5 Encounter for screening for malignant neoplasm of prostate; I42.0 Dilated cardiomyopathy; E78.2 Mixed hyperlipidemia

== ENCOUNTER → 2025-02-02 | Outpatient (CLI) | payer OTHER ==
[~2025-02-02] MED LIST changes: +MELA5TAB44 PO; -MELA5TAB7 PO
== END ==
LOC: M RAD 07:15
PROVIDERS: ATTEND Family Medicine
DX: Z87.891 Personal history of nicotine dependence (principal)

== ENCOUNTER 2025-04-12 08:36 | Day surgery (SDC) | payer OTHER ==
[~2025-04-12] VITALS: Ht 172.7 cm; Wt 87.0 kg
[~2025-04-12 08:36] MED LIST changes: +PACE200T PO; -PRAV80TA2 PO; +PRAV80TA75 PO; +SPIR-10 PO
[2025-04-12 10:44] VITALS: TEMP 97
[2025-04-12 11:02] VITALS: BP 134/65; O2SAT 97
== END 2025-04-12 11:05 | disposition home or self-care (01) ==
LOC: M OPP 08:36
PROVIDERS: ATTEND Surgery
DX: Z12.11 Encounter for screening for malignant neoplasm of colon (principal); Z79.02 Long term (current) use of antithrombotics/antiplatelets; Z95.5 Presence of coronary angioplasty implant and graft; Z86.73 Personal history of transient ischemic attack (TIA), and cerebral infarction without residual deficits; G47.30 Sleep apnea, unspecified; Z88.8 Allergy status to other drugs, medicaments and biological substances; Z91.018 Allergy to other foods; Z79.82 Long term (current) use of aspirin; Z79.891 Long term (current) use of opiate analgesic; Z79.899 Other long term (current) drug therapy; Z95.810 Presence of automatic (implantable) cardiac defibrillator; F17.210 Nicotine dependence, cigarettes, uncomplicated

== ENCOUNTER → 2025-05-17 | Outpatient (CLI) | payer OTHER | LOC: M PLAIMG 10:23 | PROVIDERS: ATTEND Registered Nurse | DX: I08.1 Rheumatic disorders of both mitral and tricuspid valves (principal); I50.22 Chronic systolic (congestive) heart failure ==